=== PATIENT | male | born 1985 | race Two or more races ===

== ENCOUNTER 2023-10-19 04:00 | Inpatient (IN) | payer BC, OTHER ==
[~2023-10-19] VITALS: Ht 167.6 cm; Wt 127.5 kg
[2023-10-19] MEDS ORDERED: dilTIAZem 25 MG/5 ML VIAL IV ONE ×2 (04:30→05:15)
[2023-10-19 04:34] LABS: Basophils # (auto) 0 10 ^3/uL (0-0.2); Basophils % (auto) 0.5 % (0.0-2.0); Eosinophils # (auto) 0.3 10 ^3/uL (0-0.8); Eosinophils % (auto) 3.3 % (0.0-7.0); Hematocrit 49.7 % (41.0-53.0); Hemoglobin 16.7 g/dL (13.5-17.5); Lymphocytes # (auto) 2.8 10 ^3/uL (0.4-5.4); Lymphocytes % (auto) 31.5 % (10.0-50.0); Mean Corpuscular Hemoglobin 31.9 pg (28.0-32.0); Mean Corpuscular Hgb Conc. 33.6 g/dL (32.0-36.0); Mean Corpuscular Volume 94.9 fL (80.0-100.0); Monocytes # (auto) 0.7 10 ^3/uL (0-1.3); Monocytes % (auto) 7.6 % (0.0-12.0); Neutrophils # (auto) 5.1 10 ^3/uL (1.6-8.6); Neutrophils % (auto) 57.1 % (37.0-80.0); Nucleated Red Blood Cells % 0.1 %; Red Blood Cells 5.24 10^6/uL (4.5-5.90); Red Cell Distribution Width 14.4 % (11.8-14.3); White Blood Cell 8.9 10^3/uL (4.4-10.8)
[2023-10-19] MEDS ORDERED: ENOXAPARIN SOD 60 MG/0.6 ML SYRINGE SC ONE (04:45)
[2023-10-19] MEDS ORDERED: ASPirin 81 mg TAB PO ONE (04:45)
[2023-10-19] MEDS ORDERED: SODIUM CHLORIDE 0.9% 1,000 ML IV ONE (04:45)
[2023-10-19] MEDS ORDERED: dilTIAZem HCL 60 MG TAB PO ONE (04:45)
[2023-10-19 04:50] LABS: INR 1.01 (0.9-1.15); Partial Thromboplastin Time 32.2 SEC (24.5-34.5); Prothrombin Time 10.6 sec (9.3-11.8)
[2023-10-19 04:55] LABS: Alanine Aminotransferase 14 U/L (7-40); Albumin 4.5 g/dL (3.2-4.8); Alkaline Phosphatase 86 U/L (46-116); Anion Gap 7 (5-15); Aspartate Aminotransferase 14 U/L (13-40); BUN/Creatinine Ratio 6.7 (10.0-20.0); Bilirubin, Total 0.5 mg/dL (0.2-1.0); Blood Urea Nitrogen 6 mg/dL (9-23); Calcium 9.2 mg/dL (8.7-10.4); Carbon Dioxide 27 mmol/L (20-30); Chloride 106 mmol/L (98-107); Glucose 83 mg/dL (74-106); Magnesium 1.9 mg/dL (1.6-2.6); Potassium 3.9 mmol/L (3.5-5.1); Sodium 140 mmol/L (136-145)
[2023-10-19 04:56] LABS: Total Protein 6.9 g/dL (5.7-8.2)
[2023-10-19 05:25] VITALS: PULSE 158; RESP 12; RESP 9; O2SAT 95
[2023-10-19] MEDS ORDERED: AMIODARONE 450mg/250ml AE 250 ML IV SCH ×2 (06:30→12:30)
[2023-10-19 07:36] LABS: Amphetamine Screen, Urine Neg (NEGATIVE)
[2023-10-19 07:37] LABS: Benzodiazephine Screen, Urine Neg (NEGATIVE)
[2023-10-19 07:38] LABS: Barbiturate Scree,Urine Neg (NEGATIVE); Cocaine Screen, Urine Neg (NEGATIVE); Opiate Scree,Urine Neg (NEGATIVE); Phencyclidine Screen, Urine Neg (NEGATIVE)
[2023-10-19 07:41] LABS: Urine Bacteria NONE SEEN /hpf (None Seen); Urine Blood Negative /uL (Negative); Urine Clarity Clear (Clear); Urine Color Colorless (Yellow); Urine Protein, UAD Negative (Negative); Urine Specific Gravity 1.004 (1.001-1.035); Urine Urobilinogen Normal (Negative); Urine WBC 1 /hpf (0 - 3)
[2023-10-19 07:45] VITALS: PULSE 80; RESP 12; O2SAT 96
[2023-10-19 07:51] LABS: Cannabinoid Screen, Urine Pos (NEGATIVE)
[2023-10-19] MEDS ORDERED: ONDANSETRON HCL 4 MG/2 ML VIAL IV PRN (09:30)
[2023-10-19] MEDS ORDERED: DOCUSATE SOD 100 MG CAP PO PRN (09:30)
[2023-10-19] MEDS ORDERED: SODIUM CHLORIDE 0.9% 1,000 ML IV SCH (09:30)
[2023-10-19] MEDS ORDERED: MORPHINE SULFATE INJ 2 MG/ml SYRG IV PRN (09:30)
[2023-10-19] MEDS ORDERED: METOPROLOL SUCCINATE XL 50 MG TAB PO ONE (14:15)
[2023-10-19 20:00] VITALS: PULSE 67; RESP 15; O2SAT 95
[2023-10-19] MEDS: FLECAINIDE ACETATE 50 MG TAB PO SCH (23:08)
[2023-10-19] MEDS ORDERED: traZODone HCL 50 MG TAB PO SCH (23:30)
[2023-10-20 06:26] LABS: Basophils # (auto) 0 10 ^3/uL (0-0.2); Basophils % (auto) 0.3 % (0.0-2.0); Eosinophils # (auto) 0.1 10 ^3/uL (0-0.8); Eosinophils % (auto) 2.1 % (0.0-7.0); Hematocrit 48.5 % (41.0-53.0); Lymphocytes # (auto) 1.7 10 ^3/uL (0.4-5.4); Lymphocytes % (auto) 24.2 % (10.0-50.0); Mean Corpuscular Hemoglobin 31.1 pg (28.0-32.0); Mean Corpuscular Volume 94.2 fL (80.0-100.0); Monocytes # (auto) 0.4 10 ^3/uL (0-1.3); Monocytes % (auto) 6.2 % (0.0-12.0); Neutrophils # (auto) 4.6 10 ^3/uL (1.6-8.6); Neutrophils % (auto) 67.2 % (37.0-80.0); Nucleated Red Blood Cells % 0.2 %; Red Blood Cells 5.15 10^6/uL (4.5-5.90); Red Cell Distribution Width 13.9 % (11.8-14.3); White Blood Cell 6.9 10^3/uL (4.4-10.8)
[2023-10-20 06:34] VITALS: BP_SYST 135; BP_SYST 139; BP_DIAS 89; PULSE 55; PULSE 56; RESP 20; TEMP 97.4; O2SAT 99
[2023-10-20 06:49] LABS: Alanine Aminotransferase 15 U/L (7-40); Albumin 4.1 g/dL (3.2-4.8); Alkaline Phosphatase 76 U/L (46-116); Anion Gap 6 (5-15); Aspartate Aminotransferase 17 U/L (13-40); BUN/Creatinine Ratio 8.5 (10.0-20.0); Blood Urea Nitrogen 7 mg/dL (9-23); Calcium 8.9 mg/dL (8.7-10.4); Carbon Dioxide 27 mmol/L (20-30); Chloride 106 mmol/L (98-107); Glucose 98 mg/dL (74-106); Potassium 4.2 mmol/L (3.5-5.1); Sodium 139 mmol/L (136-145)
[2023-10-20 06:50] LABS: Bilirubin, Total 1.7 mg/dL (0.2-1.0)
[2023-10-20 06:51] LABS: Total Protein 6.5 g/dL (5.7-8.2)
[2023-10-20 07:51] VITALS: PULSE 47
[2023-10-20 08:38] VITALS: BP 149/86; PULSE 65; RESP 16; TEMP 97.8; O2SAT 98
[2023-10-20] MEDS ORDERED: METOPROLOL SUCCINATE XL 50 MG TAB PO SCH (10:00)
[2023-10-20] MEDS: FLECAINIDE ACETATE 50 MG TAB PO SCH (10:48)
[2023-10-20 12:55] VITALS: BP 153/82; PULSE 55; RESP 16; TEMP 97.8; O2SAT 94
[2023-10-20] MEDS ORDERED: FLE50T PO (14:24)
[2023-10-20] MEDS ORDERED: MELATONIN 5 MG TAB PO ONE (22:00)
== END 2023-10-20 15:38 | disposition home or self-care (01) | DRG 309 ==
LOC: EDBD 04:00 → ER 04:00 → TELE 09:26 → TELE-CENTR 10-20 05:58
PROVIDERS: ADMIT Nurse Practitioner Family; ATTEND Nurse Practitioner Family
DX: I48.20 Chronic atrial fibrillation, unspecified (principal); Z68.42 Body mass index [BMI] 45.0-49.9, adult; F12.10 Cannabis abuse, uncomplicated; I48.0 Paroxysmal atrial fibrillation; F10.129 Alcohol abuse with intoxication, unspecified; G47.00 Insomnia, unspecified; E66.01 Morbid (severe) obesity due to excess calories; I10 Essential (primary) hypertension; G47.33 Obstructive sleep apnea (adult) (pediatric); Z98.84 Bariatric surgery status
CPT/HCPCS: 36415; 71045; 80053; 80307; 80320; 81001; 83735; 83880; 84100; 84443; 84484; 85025; 85610; 85730; 93005; 93306; 96361; 96365; 96372; 96375; 96376; 99291; G0378

== ENCOUNTER → 2023-12-14 | Outpatient (CLI) | payer BC ==
[~2023-12-14] MED LIST: FLE50T PO
[2023-12-14 08:31] LABS: Basophils # (auto) 0 10 ^3/uL (0-0.2); Basophils % (auto) 0.7 % (0.0-2.0); Eosinophils # (auto) 0.2 10 ^3/uL (0-0.8); Eosinophils % (auto) 3.3 % (0.0-7.0); Hematocrit 47.5 % (41.0-53.0); Hemoglobin 16.1 g/dL (13.5-17.5); Lymphocytes # (auto) 1.9 10 ^3/uL (0.4-5.4); Lymphocytes % (auto) 31.5 % (10.0-50.0); Mean Corpuscular Hemoglobin 31.8 pg (28.0-32.0); Mean Corpuscular Volume 93.6 fL (80.0-100.0); Monocytes # (auto) 0.4 10 ^3/uL (0-1.3); Monocytes % (auto) 6.5 % (0.0-12.0); Neutrophils # (auto) 3.4 10 ^3/uL (1.6-8.6); Red Blood Cells 5.07 10^6/uL (4.5-5.90); Red Cell Distribution Width 14.2 % (11.8-14.3); White Blood Cell 5.9 10^3/uL (4.4-10.8)
[2023-12-14 09:22] LABS: Creatinine, Urine 181.04 mg/dL (30.0-125.0)
[2023-12-14 09:27] LABS: Alanine Aminotransferase 41 U/L (7-40); Albumin 4.5 g/dL (3.2-4.8); Alkaline Phosphatase 75 U/L (46-116); Anion Gap 4 (5-15); Aspartate Aminotransferase 90 U/L (13-40); BUN/Creatinine Ratio 8.8 (10.0-20.0); Blood Urea Nitrogen 7 mg/dL (9-23); Calcium 9.4 mg/dL (8.5-10.1); Carbon Dioxide 29 mmol/L (20-30); Chloride 105 mmol/L (98-107); Glucose 87 mg/dL (74-106); LDL Cholesterol 96 mg/dL (< 100); Potassium 4.7 mmol/L (3.5-5.1); Sodium 138 mmol/L (136-145); Triglycerides 95 mg/dL (< 150)
[2023-12-14 09:28] LABS: Cholesterol 149 mg/dL (< 200); HDL Cholesterol 45 mg/dL (40-59); Total Protein 6.6 g/dL (5.7-8.2)
== END | disposition home or self-care (01) ==
LOC: LAB 08:03
PROVIDERS: ATTEND Internal Medicine
DX: I10 Essential (primary) hypertension (principal); E55.9 Vitamin D deficiency, unspecified; R73.03 Prediabetes
CPT/HCPCS: 36415; 80053; 80061; 82043; 82306; 82570; 83036; 84443; 85025

== ENCOUNTER 2025-04-27 21:18 | Emergency (ER) | payer SELFPAY ==
[~2025-04-27] VITALS: Ht 170.2 cm; Wt 127.3 kg
--- NOTE | 2025-04-27 21:40 | ED.PDOC ---
History of Present Illness HPI Comments 39 y/o morbidly obese M presents with c/c palpitations and anxiety. Patient endorses on atraumatic, unprovoked, and sudden onset of symptoms an hour prior to arrival, while at rest. Significant history for AFib on Metoprolol, HTN, gastric bypass in 2016, and marijuana use. He states on having history of palp itations in the past, intermittently, but has not had an episode for over 2 years until today. No recent life stressors, strenuous activities, lifestyle changes, or pertinent history endorsed. Denies any chest pain, shortness of breath, nausea, vomiting, diarrhea, or further associated symptoms. Chief Complaint: Palpitations Time Seen by MD: 21:30 Reviewed Notes: Nurses Notes, Medications, Allergies Allergies: Coded Allergies: NO KNOWN ALLERGIES (Unverified , 10/19/23) Home Meds Active Scripts Flecainide Acetate (TAMBOCOR TABLET) 50 Mg Tb, 50 MG PO Q12HR for 30 Days, #60 TAB Prov:VICKEY CUNNINGHAM MD 10/20/23 Information Source: Patient Mode of Arrival: Ambulatory Severity: Moderate Timing: Hours Duration: Since onset Prehospital treatment: None Past Medical History PAST MEDICAL HISTORY: AFIB (On Metoprolol ), HTN Surgical History (Other): Gastric bypass - 2016 Family History Family History: Unknown Social History Smoker: Non-Smoker Alcohol: Sober Drugs: Marijuana Lives In: Home All Other Systems: Reviewed and Negative (Comprehensive systems review obtained and negative except for what is stated in the HPI.) Physical Exam General Appearance: No Apparent Distress, Obese (morbidly obesity ) HEENT: Normal ENT Inspection, Pharynx Normal, TMs Normal Neck: Full Range of Motion, Non-Tender, Normal, Normal Inspection Respiratory: Chest Non-Tender, Lungs Clear, No Accessory Muscle Use, No Respiratory Distress, Normal Breath Sounds Cardiovascular: Irregular (irregular irregular rhythm), No Edema, No JVD, No Murmur, No Gallop, Normal Peripheral Pulses Breast Exam: Deferred Gastrointestinal: No Organomegaly, Non Tender, No Pulsatile Mass, Normal Bowel Sounds, Soft Genitalia: Deferred Pelvic: Deferred Rectal: Deferred Extremities: No calf tenderness, Normal capillary refill, Normal inspection, Normal range of motion, Non-tender, No pedal edema Musculoskeletal : Apperance: Normal Neurologic: Alert, ledger clerk II-XII nml as Tested, No Motor Deficits, Normal Mood, No Sensory Deficits, Other (anxious affect ) Cerebellar Function: Normal Reflexes: Normal Skin: Dry, Normal Color, Warm Lymphatic: No Adenopathy Was a procedure done? Was a procedure done?: No EKG EKG : Pulse Rate (adult): 128 [place]: Normal Cardiac Rhythm: ST Block: None Hypertrophy: None ST: Normal Differential Dx Considerations may include: AFib, arrhythmia, dehydration, electrolyte imbalance, tachycardia, [place], among others X-Ray, Labs, Meds, VS Vital Signs Date Time Temp Pulse Resp B/P (MAP) Pulse Ox O2 Delivery O2 Flow Rate FiO2 04/28/25 01:50 98.6 67 17 133/67 (89) 97 98.6 04/28/25 00:30 74 04/28/25 00:00 138 8 122/75 (91) 96 04/28/25 00:00 143 04/27/25 23:31 99 Room Air* 0 21 04/27/25 23:20 174 106/76 04/27/25 23:01 155 141/79 04/27/25 22:36 122 11 141/79 (99) 95 04/27/25 22:20 165 04/27/25 21:40 128 04/27/25 21:23 128 04/27/25 21:20 98.8 72 18 139/94 (109) 95 98.8 Lab Test 04/28/25 00:39 04/27/25 21:35 Range/Units Troponin I High Sensitivity 3 L < 3 L </=54 ng/L White Blood Count 11.5 H 4.4-10.8 10^3/uL Red Blood Count 4.94 4.5-5.90 10^6/uL Hemoglobin 15.7 13.5-17.5 g/dL Hematocrit 44.7 41.0-53.0 % Mean Corpuscular Volume 90.6 80.0-100.0 fL Mean Corpuscular Hemoglobin 31.7 28.0-32.0 pg Mean Corpuscular Hemoglobin Concent 35.0 32.0-36.0 g/dL Red Cell Distribution Width 13.6 11.8-14.3 % Platelet Count 181 140-450 10^3/uL Mean Platelet Volume 8.4 6.9-10.8 fL Neutrophils (%) (Auto) 67.6 37.0-80.0 % Lymphocytes (%) (Auto) 24.8 10.0-50.0 % Monocytes (%) (Auto) 6.0 0.0-12.0 % Eosinophils (%) (Auto) 1.3 0.0-7.0 % Basophils (%) (Auto) 0.3 0.0-2.0 % Neutrophils # (Auto) 7.8 1.6-8.6 10 ^3/uL Lymphocytes # (Auto) 2.8 0.4-5.4 10 ^3/uL Monocytes # (Auto) 0.7 0-1.3 10 ^3/uL Eosinophils # (Auto) 0.1 0-0.8 10 ^3/uL Basophils # (Auto) 0 0-0.2 10 ^3/uL Nucleated Red Blood Cells 0.0 % Prothrombin Time 10.8 9.3-11.8 sec Prothrombin Time INR 1.02 0.9-1.15 Activated Partial Thromboplast Time 32.7 24.5-34.5 SEC Sodium Level 140 136-145 mmol/L Potassium Level 4.0 3.5-5.1 mmol/L Chloride Level 104 98-107 mmol/L Carbon Dioxide Level 26 20-31 mmol/L Anion Gap 10 5-15 Blood Urea Nitrogen 9 9-23 mg/dL Creatinine 0.95 0.700-1.30 mg/dL Glomerular Filtration Rate Calc 105 >90 mL/min BUN/Creatinine Ratio 9.5 L 10.0-20.0 Serum Glucose 93 74-106 mg/dL Calcium Level 10.2 8.7-10.4 mg/dL Magnesium Level 1.9 1.6-2.6 mg/dL Total Bilirubin 0.7 0.2-1.0 mg/dL Aspartate Amino Transferase (AST) 16 13-40 U/L Alanine Aminotransferase (ALT) < 9 7-40 U/L Alkaline Phosphatase 100 46-116 U/L Total Protein 7.0 5.7-8.2 g/dL Albumin 4.8 3.2-4.8 g/dL Current Medications Medications (Trade) Dose Ordered Sig/Miguel A Route Start Time Stop Time Status Last Admin Apixaban (Eliquis) 5 mg BID PO 04/27/25 22:00 04/28/25 02:35 DC 04/27/25 22:32 Metoprolol Tartrate (Lopressor) 5 mg Q5M IV 04/27/25 22:45 04/28/25 02:35 DC 04/27/25 23:20 Amiodarone HCl 100 ml @ 600 mls/hr ONCE ONCE IV 04/27/25 23:45 04/27/25 23:54 DC 04/27/25 23:44 Time of 1ST Reevaluation: 22:00 Reevaluation 1ST: Unchanged Time of 2ND Reevaluation: 00:20 Reevaluation 2ND: Improved (converted to NSR) Patient Education/Counseling: Diagnosis, Treatment, Need For Follow Up Family Education/Counseling: No Family Present SEPSIS Sepsis Screen Physician Orders Chest Portable (04/27/25 23:40) Rack Washer (04/28/25 ) Vital Signs Date Time Temp Pulse Resp B/P (MAP) Pulse Ox O2 Delivery O2 Flow Rate FiO2 04/28/25 01:50 98.6 67 17 133/67 (89) 97 98.6 04/28/25 00:30 74 04/28/25 00:00 138 8 122/75 (91) 96 04/28/25 00:00 143 04/27/25 23:31 99 Room Air* 0 21 04/27/25 23:20 174 106/76 04/27/25 23:01 155 141/79 04/27/25 22:36 122 11 141/79 (99) 95 04/27/25 22:20 165 04/27/25 21:40 128 04/27/25 21:23 128 04/27/25 21:20 98.8 72 18 139/94 (109) 95 98.8 Laboratory Tests Test 04/27/25 21:35 White Blood Count 11.5 10^3/uL (4.4-10.8) H Medications Medications Dose Ordered Sig/Miguel A Route Start Time Stop Time Status Last Admin Dose Admin Amiodarone HCl 100 ml @ 600 mls/hr ONCE ONCE IV 04/27/25 23:45 04/27/25 23:54 DC 04/27/25 23:44 Apixaban 5 mg BID PO 04/27/25 22:00 04/28/25 02:35 DC 04/27/25 22:32 Metoprolol Tartrate 5 mg Q5M IV 04/27/25 22:45 7/29/25 02:35 DC 04/27/25 23:20 Departure 1 Departure Time of Disposition: 00:10 Impression: Primary Impression: Paroxysmal atrial fibrillation Disposition: HOME / SELF CARE / HOMELESS Condition: Stable Discharged With: Self Critical Care Note Critical Care Time?: No Stability Stability form required: No Heart Score Heart Score: Heart Score Response (Comments) Value History N/A 0 EKG N/A 0 Age N/A 0 Risk Factors N/A 0 Troponin N/A 0 Total 0 I personally scribed for JALIL LOWRY MD ([email or web address]) on 04/27/25 at 21:40. Electronically submitted by Mitchel Zhang [email or web address]). JALIL LOWRY MD Apr 27, 2025 21:40
[2025-04-27 21:58] LABS: Hematocrit 44.7 % (41.0-53.0); Hemoglobin 15.7 g/dL (13.5-17.5); Mean Corpuscular Hemoglobin 31.7 pg (28.0-32.0); Mean Corpuscular Volume 90.6 fL (80.0-100.0); Nucleated Red Blood Cells % 0.0 %
[2025-04-27 22:17] LABS: Albumin 4.8 g/dL (3.2-4.8); Alkaline Phosphatase 100 U/L (46-116); Anion Gap 10 (5-15); BUN/Creatinine Ratio 9.5 (10.0-20.0); Bilirubin, Total 0.7 mg/dL (0.2-1.0); Calcium 10.2 mg/dL (8.7-10.4); Carbon Dioxide 26 mmol/L (20-31); Chloride 104 mmol/L (98-107); Glucose 93 mg/dL (74-106); Magnesium 1.9 mg/dL (1.6-2.6); Potassium 4.0 mmol/L (3.5-5.1); Sodium 140 mmol/L (136-145); Total Protein 7.0 g/dL (5.7-8.2)
[2025-04-27 22:18] LABS: Alanine Aminotransferase < 9 U/L (7-40); Blood Urea Nitrogen 9 mg/dL (9-23)
[2025-04-27] MEDS: APIXABAN 5 MG TAB PO SCH (22:32)
[2025-04-27 22:44] LABS: INR 1.02 (0.9-1.15); Partial Thromboplastin Time 32.7 SEC (24.5-34.5); Prothrombin Time 10.8 sec (9.3-11.8)
--- NOTE | 2025-04-27 22:46 | ECG ---
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
[2025-04-27] MEDS: METOPROLOL TARTRATE 1MG/1ML-5ML VIAL IV SCH (23:01)
[2025-04-27 23:31] VITALS: O2SAT 99
[2025-04-27] MEDS: AMIODARONE 360mg/200mL PREMIX 200 ML IV ONE (23:40)
[2025-04-27] MEDS: AMIODARONE BOLUS KIT 100 ML IV ONE (23:44)
--- NOTE | 2025-04-28 01:13 | DVH ---
CHEST RADIOGRAPH Indication: chest pain Technique: Single frontal view of the chest was obtained COMPARISON: XY CHEST PORTABLE on DOS: 10/19/23 FINDINGS: Lines and Tubes: None Lungs: Clear Pleura: No effusion. No pneumothorax. Cardiomediastinal contours: Unremarkable Bones: Unremarkable IMPRESSION: 1. No acute disease.
[2025-04-28 01:50] VITALS: BP 133/67; PULSE 67; RESP 17; TEMP 98.6; O2SAT 97
[2025-04-28] MEDS ORDERED: AMIODARONE 360mg/200mL PREMIX 200 ML IV SCH (06:00)
[2025-04-28] MEDS ORDERED: TRAZ-227 PO ×2 (15:49)
[2025-04-28] MEDS ORDERED: METO25TA93 PO ×2 (15:49)
[2025-04-30] MEDS ORDERED: APIX5TAB PO ×2 (16:29)
== END 2025-04-28 02:01 | disposition home or self-care (01) ==
LOC: EEVIPCON 21:18 → ER 21:18
DX: I48.0 Paroxysmal atrial fibrillation (principal); I10 Essential (primary) hypertension; Z79.899 Other long term (current) drug therapy
CPT/HCPCS: 36415; 71045; 80053; 83735; 84484; 85025; 85610; 85730; 93005; 96374; 99285; J0283

== ENCOUNTER 2025-04-28 10:04 | Inpatient (IN) | payer SELFPAY ==
[~2025-04-28] VITALS: Ht 167.6 cm; Wt 128.0 kg
--- NOTE | 2025-04-28 10:08 | ECG ---
[facility] Test Date: 2025-04-28 Test Time: 00:30:11 Pat Name: CASSIA MAYFIELD Department: ED Room: 0270T Gender: M Medicine Assistant: MARGY : 1985 Requested By: ASHLY BARCENAS Order Number: [id number] Reading MD: Nickolas Becerra Measurements Intervals [place] Rate: 74 P: 5 VT: 145 QRS: -1 QRSD: 97 T: 23 QT: 358 QTc: 398 Interpretive Statements Sinus rhythm Ventricular premature complex Low voltage, precordial leads Electronically Signed On 04-29-2025 17:52:13 PDT by Nickolas Becerra Please click the below link to view image of tracing.
--- NOTE | 2025-04-28 10:28 | ED.PDOC ---
HPI Comments 39 year-old morbidly obese male presents with to the ED with a chief complaint of palpitations. Patient endorses on atraumatic, unprovoked, and sudden onset of symptoms as of 0600 this morning, while at rest. Significant history for AFib on Metoprolol, HTN, gastric bypass in 2016, and marijuana use. He states on having history of palpitations in the past, intermittently, but has not had an episode for over 2 years until today. Patient came to the ED yesterday, 04/27/25, and was discharged with Paroxysmal atrial fibrillation. Patient came to the ED today upon continuing symptoms. Patient denies any recent life stressors, strenuous activities, lifestyle changes, or pertinent history endorsed. Denies any chest pain, shortness of breath, nausea, vomiting, diarrhea, or further associated symptoms. Chief Complaint: Palpitations Time Seen by MD: 10:26 Reviewed Notes: Nurses Notes, Medications, Allergies Allergies: Coded Allergies: NO KNOWN ALLERGIES (Unverified , 10/19/23) Home Meds Active Scripts Flecainide Acetate (TAMBOCOR TABLET) 50 Mg Tb, 50 MG PO Q12HR for 30 Days, #60 TAB Prov:VICKEY CUNNINGHAM MD 10/20/23 Information Source: Patient Mode of Arrival: Ambulatory Severity: Moderate Timing: Hours Duration: Since onset History of: Other (AFIB and HTN ) Associated Signs and Symptoms: Palpitations Past Medical History PAST MEDICAL HISTORY: AFIB, HTN Family History Family History: Unknown Social History Smoker: Non-Smoker Alcohol: Sober Drugs: Marijuana Lives In: Home Constitutional: denies: chills, diaphoresis, fatigue, fever, malaise, sweats, weakness, others EENTM: denies: blurred vision, double vision, ear bleeding, ear discharge, ear drainage, ear pain, ear ringing, eye pain, eye redness, hearing loss, mouth pain, mouth swelling, nasal discharge, nose bleeding, nose congestion, nose pain, photophobia, tearing, throat pain, throat swelling, voice changes, others Respiratory: denies: cough, hemoptysis, orthopnea, SOB at rest, shortness of breath, SOB with excertion, stridor, wheezing, others Cardiovascular: reports: palpitations; denies: chest pain, dizzy spells, diaphoresis, Dyspnea on exertion, edema, irregular heart beat, left arm pain, lightheadedness, PND, syncope, others Gastrointestinal: denies: abdomen distended, abdominal pain, blood streaked bowels, constipated, diarrhea, dysphagia, difficulty swallowing, hematemesis, melena, nausea, poor appetite, poor fluid intake, rectal bleeding, rectal pain, vomiting, others Genitourinary: denies: burning, dysuria, flank pain, frequency, hematuria, incontinence, penile discharge, penile sore, pain, testicle pain, testicle swelling, urgency, others Neurological: denies: dizziness, fainting, headache, left sided numbness, left sided weakness, numbness, paresthesia, pre-existing deficit, right sided numbness, right sided weakness, seizure, speech problems, tingling, tremors, weakness, others Musculoskeletal: denies: back pain, gout, joint pain, joint swelling, muscle pain, muscle stiffness, neck pain, others Integumetry: denies: bruises, change in color, change in hair/nails, dryness, laceration, lesions, lumps, rash, wounds, others Allergic/Immunocompromised: denies: Difficulty Healing, Frequent Infections, Hives, Itching, others Hematologic/Lymphatic: denies: anemia, blood clots, easy bleeding, easy bruising, swollen glands, others Endocrine: denies: excessive hunger, excessive sweating, excessive thirst, excessive urination, flushing, intolerance to cold, intolerance to heat, unexplained weight gain, unexplained weight loss, others Psychiatric: denies: anxiety, bipolar disorder, depression, hopeless, panic disorder, schizophrenia, sleepless, suicidal, others All Other Systems: Reviewed and Negative Physical Exam General Appearance: Moderate Distress, Obese HEENT: Normal ENT Inspection, Pharynx Normal, TMs Normal Neck: Full Range of Motion, Non-Tender, Normal, Normal Inspection Respiratory: Chest Non-Tender, Lungs Clear, No Accessory Muscle Use, No Respiratory Distress, Normal Breath Sounds Cardiovascular: Irregular, No Edema, No JVD, No Murmur, No Gallop, Tachycardia Breast Exam: Deferred Gastrointestinal: No Organomegaly, Non Tender, No Pulsatile Mass, Normal Bowel Sounds, Soft Genitalia: Deferred Pelvic: Deferred Rectal: Deferred Extremities: No calf tenderness, Normal capillary refill, No pedal edema Musculoskeletal : Apperance: Normal Neurologic: Alert, smoke control supervisor II-XII nml as Tested, Motor Weakness, Normal Affect, Normal Mood, No Sensory Deficits Cerebellar Function: Normal Reflexes: Normal Skin: Dry, Normal Color, Warm Lymphatic: No Adenopathy EKG EKG : Pulse Rate (adult): 153 Cardiac Rhythm: Afib Was a procedure done? Was a procedure done?: No CP Differential Dx Differential Diagnosis: A-fib, Hyperthyroidism, Sinus Tachycardia Differential Diagnosis: HTN Essential, HTN Accelerated X-Ray, Labs, Meds, VS Vital Signs Date Time Temp Pulse Resp B/P (MAP) Pulse Ox O2 Delivery O2 Flow Rate FiO2 04/28/25 12:26 137 13 99 Room Air* 0 21 04/28/25 12:26 137 13 131/80 (97) 99 04/28/25 11:35 66 16 98 Room Air 04/28/25 11:35 98.7 66 16 144/75 (98) 95 98.7 04/28/25 11:30 98.4 66 16 144/75 (98) 95 98.4 04/28/25 11:30 66 16 95 Room Air 04/28/25 11:16 143 04/28/25 10:28 153 04/28/25 10:17 98.2 65 17 138/99 97 98.2 04/28/25 10:10 123 04/28/25 10:10 153 Lab Test 04/28/25 11:20 04/28/25 10:18 Range/Units Troponin I High Sensitivity 3 L 4 </=54 ng/L White Blood Count 10.7 4.4-10.8 10^3/uL Red Blood Count 5.19 4.5-5.90 10^6/uL Hemoglobin 16.4 13.5-17.5 g/dL Hematocrit 47.4 41.0-53.0 % Mean Corpuscular Volume 91.2 80.0-100.0 fL Mean Corpuscular Hemoglobin 31.6 28.0-32.0 pg Mean Corpuscular Hemoglobin Concent 34.6 32.0-36.0 g/dL Red Cell Distribution Width 13.9 11.8-14.3 % Platelet Count 199 140-450 10^3/uL Mean Platelet Volume 9.2 6.9-10.8 fL Neutrophils (%) (Auto) 78.3 37.0-80.0 % Lymphocytes (%) (Auto) 15.1 10.0-50.0 % Monocytes (%) (Auto) 5.5 0.0-12.0 % Eosinophils (%) (Auto) 0.8 0.0-7.0 % Basophils (%) (Auto) 0.3 0.0-2.0 % Neutrophils # (Auto) 8.3 1.6-8.6 10 ^3/uL Lymphocytes # (Auto) 1.6 0.4-5.4 10 ^3/uL Monocytes # (Auto) 0.6 0-1.3 10 ^3/uL Eosinophils # (Auto) 0.1 0-0.8 10 ^3/uL Basophils # (Auto) 0 0-0.2 10 ^3/uL Nucleated Red Blood Cells 0.1 % Sodium Level 140 136-145 mmol/L Potassium Level 4.4 3.5-5.1 mmol/L Chloride Level 104 98-107 mmol/L Carbon Dioxide Level 28 20-31 mmol/L Anion Gap 8 5-15 Blood Urea Nitrogen 8 L 9-23 mg/dL Creatinine 0.92 0.700-1.30 mg/dL Glomerular Filtration Rate Calc 109 >90 mL/min BUN/Creatinine Ratio 8.7 L 10.0-20.0 Serum Glucose 124 H 74-106 mg/dL Hemoglobin A1c Pending Calcium Level 10.1 8.7-10.4 mg/dL Magnesium Level 1.8 1.6-2.6 mg/dL Total Bilirubin 1.1 H 0.2-1.0 mg/dL Aspartate Amino Transferase (AST) 16 13-40 U/L Alanine Aminotransferase (ALT) < 9 7-40 U/L Alkaline Phosphatase 104 46-116 U/L Total Protein 7.0 5.7-8.2 g/dL Albumin 4.8 3.2-4.8 g/dL Triglycerides Level 109 < 150 mg/dL Cholesterol Level 145 < 200 mg/dL LDL Cholesterol 90 < 100 mg/dL HDL Cholesterol 47 40-59 mg/dL Thyroid Stimulating Hormone (TSH) Pending Current Medications Medications (Trade) Dose Ordered Sig/Miguel A Route Start Time Stop Time Status Last Admin Diltiazem HCl (Cardizem Injection) 20 mg ONCE ONCE IV 04/28/25 11:30 04/28/25 11:31 DC 04/28/25 12:50 The patient was given diltiazem 20 mg IV push for the elevated heart rate and irregular heart rate The patient's CBC and chemistry panel are within normal limits The patient has had his heart rate convert down to the 66 and then go back as above 130 The patient is being admitted A cardiology consult will be obtained. The patient understands and agrees with the management. Images Reviewed?: Images reviewed and evaluated by me Time of 1ST Reevaluation: 10:53 Reevaluation 1ST: Unchanged Patient Education/Counseling: Diagnosis, Treatment, Prognosis Family Education/Counseling: No Family Present SEPSIS Sepsis Screen Date sepsis recognized/suspect: Apr 28, 2025 Time Sepsis recognized/suspect: 1007 Recent Procedure: No On Antibiotic Therapy: No Respiratory Rate >20: No Heart Rate >90: No Temp<36 C (96.8 F) or >38.3 C: No SBP <90 or MAP <65 mmHG: No New Acute Mental Status Change: No Is the patient on CPAP, BIPAP,: No Physician Orders Electrocardigram (04/28/25 13:06) Heplock Iv (04/28/25 10:17) Internet Marketer (04/28/25 10:17) Blood Pressure (04/28/25 10:17) Pulse Oximetry (04/28/25 10:17) Vital Signs Date Time Temp Pulse Resp B/P (MAP) Pulse Ox O2 Delivery O2 Flow Rate FiO2 04/28/25 12:26 137 13 99 Room Air* 0 21 04/28/25 12:26 137 13 131/80 (97) 99 04/28/25 11:35 66 16 98 Room Air 04/28/25 11:35 98.7 66 16 144/75 (98) 95 98.7 04/28/25 11:30 98.4 66 16 144/75 (98) 95 98.4 04/28/25 11:30 66 16 95 Room Air 04/28/25 11:16 143 04/28/25 10:28 153 04/28/25 10:17 98.2 65 17 138/99 97 98.2 04/28/25 10:10 123 04/28/25 10:10 153 Laboratory Tests Test 04/28/25 10:18 White Blood Count 10.7 10^3/uL (4.4-10.8) Medications Medications Dose Ordered Sig/Miguel A Route Start Time Stop Time Status Last Admin Dose Admin Diltiazem HCl 20 mg ONCE ONCE IV 04/28/25 11:30 04/28/25 11:31 DC 04/28/25 12:50 Departure 1 Departure Time of Disposition: 14:19 Impression: Primary Impression: Atrial fibrillation with RVR Disposition: ADMITTED INPATIENT Condition: Guarded Critical Care Note Critical Care Time?: Yes (55 min-critical care time only) Stability Stability form required: Yes Unstable for transfer: Telemetry monitoring (Telemetry monitoring required), ED Physician Assesment (Clinical assesment) Heart Score Heart Score: Heart Score Response (Comments) Value History Moderate Suspicious 1 EKG Normal 0 Age <45 0 Risk Factors 1 or 2 risk factors 1 Troponin Normal limit 0 Total 2 I personally scribed for DARLINE CLEMONS MD ([email or web address]) on 04/28/25 at 10:28. Electronically submitted by Alyssa You ([email or web address]). I personally scribed for DARLINE CLEMONS MD ([email or web address]) on 04/28/25 at 13:49. Electronically submitted by Alyssa You ([email or web address]). DARILNE CLEMONS MD Apr 28, 2025 10:28
[2025-04-28 11:03] LABS: Albumin 4.8 g/dL (3.2-4.8); Alkaline Phosphatase 104 U/L (46-116); Anion Gap 8 (5-15); BUN/Creatinine Ratio 8.7 (10.0-20.0); Bilirubin, Total 1.1 mg/dL (0.2-1.0); Calcium 10.1 mg/dL (8.7-10.4); Carbon Dioxide 28 mmol/L (20-31); Chloride 104 mmol/L (98-107); Magnesium 1.8 mg/dL (1.6-2.6); Potassium 4.4 mmol/L (3.5-5.1); Sodium 140 mmol/L (136-145); Total Protein 7.0 g/dL (5.7-8.2)
[2025-04-28 11:05] LABS: Alanine Aminotransferase < 9 U/L (7-40); Blood Urea Nitrogen 8 mg/dL (9-23); Glucose 124 mg/dL (74-106)
--- NOTE | 2025-04-28 11:18 | ECG ---
[facility] Test Date: 2025-04-28 Test Time: 11:16:27 Pat Name: CASSIA MAYFIELD Department: [facility] ED Patient ID: [id number] Room: 0270T Gender: M Help Desk Assistant: JUNG : 1985 Requested By: ASHLY BARCENAS Order Number: [id number] Reading MD: Nickolas Becerra Measurements Intervals [place] Rate: 143 P: 0 [place]: 0 QRS: -2 QRSD: 95 T: 44 QT: 307 QTc: 474 Interpretive Statements Atrial flutter/fibrillation Prolonged QT interval Electronically Signed On 04-29-2025 17:53:14 PDT by Nickolas Becerra Please click the below link to view image of tracing.
[2025-04-28] MEDS: METOPROLOL TARTRATE 1MG/1ML-5ML VIAL IV ONE (11:30)
[2025-04-28 12:26] VITALS: PULSE 137; RESP 13; O2SAT 99
[2025-04-28 12:40] LABS: Hematocrit 47.4 % (41.0-53.0); Hemoglobin 16.4 g/dL (13.5-17.5); Mean Corpuscular Hemoglobin 31.6 pg (28.0-32.0); Mean Corpuscular Volume 91.2 fL (80.0-100.0); Nucleated Red Blood Cells % 0.1 %
[2025-04-28] MEDS ORDERED: ONDANSETRON HCL 4 MG/2 ML VIAL IV PRN (12:45)
[2025-04-28] MEDS ORDERED: ACETAMINOPHEN 325 MG TAB PO PRN (12:45)
[2025-04-28] MEDS ORDERED: NITROGLYCERIN 0.4 MG SL TAB SL PRN (12:45)
[2025-04-28] MEDS ORDERED: HYDROcodone-ACET 5/325MG TAB PO PRN (12:45)
[2025-04-28] MEDS ORDERED: DOCUSATE SOD 100 MG CAP PO PRN (12:45)
[2025-04-28] MEDS ORDERED: MORPHINE SULFATE INJ 2 MG/ml SYRG IV PRN (12:45)
--- NOTE | 2025-04-28 12:49 | DVHHP2 ---
History of Present Illness Reason for Visit: Palpitations History of Present Illness Pauline Bhatt is a 39-year-old male with past medical history of obesity, hypertension, and atrial fibrillation, who came to the hospital for palpitations. Patient has a history of atrial fibrillation, however he states he has not been in atrial fibrillation for over 2 years. He has been controlled at home on just Metoprolol. Patient did take PO amiodarone for about 6 months, but it messed with his thyroid so he was taken off the medication. He was seen here yesterday due to palpitations, and was found to be in atrial fibrillation. He was given 2 doses of IV metoprolol, without any improvement, so he was started on IV amiodarone. He converted last night, remained in SR for several hours, and was discharged home. This morning he woke up with palpitations again. He tried taking a double dose of his metoprolol hoping to convert back to SR, but he was unsuccessful so he came back to the ER. Patient also has an open wound to his right lower abdomen. He states he gets boils at times from his abdomen rubbing on his belt. Cardiovascular: AFIB, HTN Past Surgical History: Cholecystectomy, Other (gastric bypass) Smoke: No ALCOHOL: none Drugs: Marijuana Lives: Alone Domestic Violence: Neg Review of Systems Constitutional: No: Fever, Chills, Sweats, Weakness, Malaise, Other Eyes: No: Pain, Vision change, Conjunctivae inflammation, Eyelid inflammation, Other, Redness ENT: No: Ear pain, Ear discharge, Nose pain, Nose discharge, Nose congestion, Mouth pain, Mouth swelling, Throat pain, Throat swelling, Other Respiratory: No: Cough, Dry, Shortness of breath, SOB with excertion, Wheezing, Hemoptysis, Pleuritic Pain, Sputum, Wheezing, Other Cardiovascular: Palpitations; No: Chest Pain, Orthopnea, Paroxysmal Noc. Dyspnea, Edema, Lt Headedness, Other Gastrointestinal: No: Nausea, Vomiting, Abdominal Pain, Diarrhea, Constipation, Melena, Hematochezia, Other Genitourinary: No Dysuria, No Frequency, No Incontinence, No Hematuria, No Retention, No Other Musculoskeletal: No: other, neck pain, shoulder pain, arm pain, back pain, hand pain, leg pain, foot pain Skin: Lesions (right lower abdomen); No: Rash, Jaundice, Bruising, Other Neurological: No: Weakness, Numbness, Incoordination, Change in speech, Confusion, Seizures, Other Allergies: Coded Allergies: NO KNOWN ALLERGIES (Unverified , 10/19/23) Exam Vital Signs Vital Signs Date Time Temp Pulse Resp B/P (MAP) Pulse Ox O2 Delivery O2 Flow Rate FiO2 04/28/25 11:35 66 16 98 Room Air 04/28/25 11:35 98.7 144/75 (98) 98.7 General Appearance: Alert, Oriented X3, Cooperative, mild distress HEENT: Atraumatic, PERRLA Respiratory: Clear to auscultation, Normal air movement Cardiovascular: Other (Atrial fibrillation) Abdominal: Normal bowel sounds, Soft, No tenderness, No hepatospenomegaly Extremities: No clubbing, No cyanosis, No edema, Normal pulses Skin: No rashes, No significant lesion (open wound to right lower abdomen, surronding tissue is red, swollen, and warm. Yellow drainage noted) Neuro: Normal gait, Normal speech, Strength at 5/5 X4 ext, Normal tone Psych/Mental Status: Mental status NL, Mood NL Labs/Xrays Labs Test 04/28/25 11:20 04/28/25 10:18 Range/Units Troponin I High Sensitivity 3 L </=54 ng/L Sodium Level 140 136-145 mmol/L Potassium Level 4.4 3.5-5.1 mmol/L Chloride Level 104 98-107 mmol/L Carbon Dioxide Level 28 20-31 mmol/L Anion Gap 8 5-15 Blood Urea Nitrogen 8 L 9-23 mg/dL Creatinine 0.92 0.700-1.30 mg/dL Glomerular Filtration Rate Calc 109 >90 mL/min BUN/Creatinine Ratio 8.7 L 10.0-20.0 Serum Glucose 124 H 74-106 mg/dL Calcium Level 10.1 8.7-10.4 mg/dL Magnesium Level 1.8 1.6-2.6 mg/dL Total Bilirubin 1.1 H 0.2-1.0 mg/dL Aspartate Amino Transferase (AST) 16 13-40 U/L Alanine Aminotransferase (ALT) < 9 7-40 U/L Alkaline Phosphatase 104 46-116 U/L Total Protein 7.0 5.7-8.2 g/dL Albumin 4.8 3.2-4.8 g/dL SEPSIS Sepsis Screen Date sepsis recognized/suspect: Apr 28, 2025 Time Sepsis recognized/suspect: 1007 Recent Procedure: No On Antibiotic Therapy: No Respiratory Rate >20: No Heart Rate >90: No Temp<36 C (96.8 F) or >38.3 C: No SBP <90 or MAP <65 mmHG: No New Acute Mental Status Change: No Is the patient on CPAP, BIPAP,: No Physician Orders Troponin-I Hs (04/28/25 13:06) Electrocardigram (04/28/25 13:06) Heplock Iv (04/28/25 10:17) Pool Hand (04/28/25 10:17) Blood Pressure (04/28/25 10:17) Pulse Oximetry (04/28/25 10:17) Complete Blood Count (04/28/25 11:32) Admit (04/28/25 12:35) Code Status (04/28/25 12:35) 2 Gm Sodium Diet (04/28/25 Lunch) Hydrocodone-Acet 5/325mg Tab ([place] (04/28/25 12:45) Ondansetron Hcl (Zofran) (04/28/25 12:45) Docusate Sodium Capsule (Colace Capsule) (04/28/25 12:45) Complete Blood Count (04/29/25 04:00) Comprehensive Metabolic Panel (04/29/25 04:00) Echo 2d Mode Cardiac Dop (04/28/25 12:35) Condition: Serious (04/28/25 12:35) Acetaminophen Tablet (Tylenol Tablet) (04/28/25 12:45) Nitroglycerin Sublingual (Ntrostat Subli (04/28/25 12:45) Morphine Sulfate Injection (04/28/25 12:45) Stat Ekg For Chest Pain (04/28/25 12:35) Notify Md Of Changes From Base (04/28/25 12:35) Yard Cleaner For 24 Hours (04/28/25 12:35) Emergency Dysrhythmia Protocol (04/28/25 12:35) Rhythm Strips Once Every Shift (04/28/25 12:35) Oxygen By Nasal Cannula (04/28/25 12:35) * Cardiology Consult (04/28/25 12:35) Vital Signs Date Time Temp Pulse Resp B/P (MAP) Pulse Ox O2 Delivery O2 Flow Rate FiO2 04/28/25 11:35 66 16 98 Room Air 04/28/25 11:35 98.7 66 16 144/75 (98) 95 98.7 04/28/25 11:30 98.4 66 16 144/75 (98) 95 98.4 04/28/25 11:30 66 16 95 Room Air 04/28/25 11:16 143 04/28/25 10:28 153 04/28/25 10:17 98.2 65 17 138/99 97 98.2 04/28/25 10:10 123 04/28/25 10:10 153 Laboratory Tests Test 04/28/25 10:18 White Blood Count Pending Assessment/Plan Assessment/Plan Assessment: Paroxysmal atrial fibrillation, Hypertension, Obesity, Open wound, Plan: Admit to Tele, Cardiology consult, ECHO, Lipid panel, TSH, and A1c, IV amiodarone started, IV hydration, IV antibiotics, Wound culture, Wound care consult, Consider surgical consult if wound worsens and requires surgical debridement, Home medications reconciled, Plan discussed with: Patient My Orders Orders - SHANICE SOTO SENIOR CONSTRUCTION ESTIMATOR Procedure Category Date Status Time Complete Blood Count LAB 04/28/25 In Process 11:32 Admit ADMIT 04/28/25 Verified 12:35 Code Status CODE 04/28/25 Verified 12:35 2 Gm Sodium Diet DIET 04/28/25 Verified Lunch Hydrocodone-Acet PHA 04/28/25 Verified 5/325mg Tab ([place] 12:45 Ondansetron Hcl PHA 04/28/25 Verified (Zofran) 12:45 Docusate Sodium PHA 04/28/25 Verified Capsule (Colace 12:45 Complete Blood Count LAB 04/29/25 Verified 04:00 Comprehensive LAB 04/29/25 Verified Metabolic Panel 04:00 Echo 2d Mode Cardiac US 04/28/25 Verified DOP 12:35 Condition: Serious CAREY 04/28/25 Verified 12:35 Acetaminophen Tablet PHA 04/28/25 Verified (Tylenol Tablet) 12:45 Nitroglycerin PHA 04/28/25 Verified Sublingual (Ntrostat 12:45 Morphine Sulfate PHA 04/28/25 Verified Injection 12:45 Stat Ekg For Chest CAREY 04/28/25 Verified Pain 12:35 Notify Of Changes CAREY 04/28/25 Verified From Base 12:35 Yard Cleaner For [facility] 04/28/25 Verified 24 Hours 12:35 Emergency Dysrhythmia [facility] 04/28/25 Verified Protocol 12:35 Rhythm Strips Once [facility] 04/28/25 Verified Every Shift 12:35 Oxygen By Nasal RT 04/28/25 Verified Cannula 12:35 * Cardiology Consult CONS 04/28/25 Verified 12:35 Date of Service: Apr 28, 2025 Billing Provider: SHANICE SOTO Common Visit Codes: [id number] INP/OBS CARE (MOD) SHANICE SOTO Apr 28, 2025 12:48
[2025-04-28] MEDS: dilTIAZem 25 MG/5 ML VIAL IV ONE (12:50)
[2025-04-28 14:13] LABS: Triglycerides 109 mg/dL (< 150)
[2025-04-28 14:15] LABS: Cholesterol 145 mg/dL (< 200); HDL Cholesterol 47 mg/dL (40-59)
[2025-04-28] MEDS ORDERED: VANCOMYCIN PER PHARMACY 0 MG IV SCH (15:00)
[2025-04-28] MEDS ORDERED: VANCOMYCIN 1.25GM/250ML 250 ML IV ONE (15:00)
[2025-04-28] MEDS: CLINDAMYCIN 600MG IV 50 ML IV ONE (15:19)
[2025-04-28] MEDS: SODIUM CHLORIDE 0.9% 1,000 ML IV ONE (15:19)
[2025-04-28] MEDS ORDERED: METO25TA93 PO (15:49)
[2025-04-28] MEDS ORDERED: TRAZ-227 PO (15:49)
[2025-04-28] MEDS: AMIODARONE 360mg/200mL PREMIX 200 ML IV ONE (16:05)
[2025-04-28] MEDS: AMIODARONE BOLUS KIT 100 ML IV ONE (16:05)
[2025-04-28] MEDS: VANCOMYCIN 1GM/200ML PM 250 ML IV SCH (16:17)
--- NOTE | 2025-04-28 17:04 | DVHSR ---
APPROVED REPORT EXAM: Two-dimensional and M-mode echocardiogram with Doppler and color Doppler. Blood Pressure: 131/80 mmHg INDICATION paroxysmal atrial fibrillation RISK FACTORS Obesity: Height: 5'6, Weight: 270 DIMENSIONS LVDd4.1 (3.8-5.7cm)LA (2D)5.2 (1.9-4.0cm)Aortic Root3.4 (2.0-3.7cm) LVDs2.7 (2.5-4.0cm)LA (MM) (1.9-4.0cm)Aortic Cusp Exc2.0 (1.5-2.0cm) EF (%) 60.0 (55-70%)Rt. Atrium3.6 (1.9-4.0cm)Asc. Aorta cm IVSd1.1 (0.7-1.1cm)RV (D)3.8 (1.8-2.4cm) PWd0.8 (0.7-1.1cm) Mitral Valve MitralMitral Stenosis E wave1.11m/sMV Mean GR.mmHg A wave1.00m/sMV Peak GR.72mmHg E/A ratio1.12D MVAcm2 DECEL [id number] 1/2 Timems Aortic Valve Aortic ValveAortic Stenosis V11.02m/Heydi Mean GR.4mmHg V21.35m/Heydi Peak GR.7mmHg LVOT Diameter2.3 (1.8-2.4cm)Doppler AVA3.14cm2 Pulmonic Valve V20.79m/s Tricuspid Valve TR Velocity2.50m/s [id number] Other Information Technically limited study due to body habitus. Conclusion lvef 50% left atrium enlarged afib noted during study mild mitral regurg
[2025-04-28 18:29] VITALS: PULSE 75
[2025-04-28 19:28] VITALS: BP 122/76; PULSE 65; RESP 15; TEMP 98.1; O2SAT 95
[2025-04-28 20:00] VITALS: PULSE 66; PULSE 77; RESP 18; O2SAT 98
[2025-04-28 21:00] VITALS: BP 120/78; PULSE 66; RESP 14; TEMP 98; O2SAT 95
[2025-04-28] MEDS: AMIODARONE 360mg/200mL PREMIX 200 ML IV SCH (21:15)
[2025-04-28] MEDS: CLINDAMYCIN 600MG IV 50 ML IV SCH (21:34)
[2025-04-28] MEDS: METOPROLOL SUCCINATE XL 50 MG TAB PO SCH (21:39)
[2025-04-28] MEDS ORDERED: METOPROLOL SUCCINATE PO SCH (22:00)
[2025-04-29] VITALS (8 sets, daily range): BP systolic 109–149; BP diastolic 72–95; PULSE 60–70; RESP 14–20; TEMP 97.2–98; O2SAT 94–98
[2025-04-29 05:18] LABS: Hematocrit 43.6 % (41.0-53.0); Hemoglobin 15.2 g/dL (13.5-17.5); Mean Corpuscular Hemoglobin 31.6 pg (28.0-32.0); Mean Corpuscular Volume 90.9 fL (80.0-100.0); Nucleated Red Blood Cells % 0.0 %
[2025-04-29 05:40] LABS: Albumin 4.4 g/dL (3.2-4.8); Alkaline Phosphatase 94 U/L (46-116); Anion Gap 7 (5-15); BUN/Creatinine Ratio 11.0 (10.0-20.0); Calcium 9.2 mg/dL (8.7-10.4); Carbon Dioxide 27 mmol/L (20-31); Chloride 106 mmol/L (98-107); Glucose 92 mg/dL (74-106); Potassium 4.0 mmol/L (3.5-5.1); Sodium 140 mmol/L (136-145); Total Protein 6.4 g/dL (5.7-8.2)
[2025-04-29 05:41] LABS: Alanine Aminotransferase < 9 U/L (7-40); Bilirubin, Total 1.1 mg/dL (0.2-1.0); Blood Urea Nitrogen 9 mg/dL (9-23)
[2025-04-29] MEDS: VANCOMYCIN 1GM/200ML PM 200 ML IV SCH (10:54)
--- NOTE | 2025-04-29 17:33 | DVHPN2 ---
Subjective I am assuming the care of the patient from today onwards. Reviewed: Care Plan Changes from previous H/P or p: No Changes Eyes: No Pain, No Vision change, No Conjunctivae inflammation, No Eyelid inflammation, No Other, No Redness ENT: No Ear pain, No Ear discharge, No Nose pain, No Nose discharge, No Nose congestion, No Mouth pain, No Mouth swelling, No Throat pain, No Throat swelling, No Other Cardiovascular: No Chest Pain; Palpitations; No Orthopnea, No Paroxysmal Noc. Dyspnea, No Edema, No Lt Headedness, No Other Respiratory: No Cough, No Dry, No Shortness of breath, No SOB with excertion, No Wheezing, No Hemoptysis, No Pleuritic Pain, No Sputum, No Other Gastrointestinal: No Nausea, No Vomiting, No Abdominal Pain, No Diarrhea, No Constipation, No Melena, No Hematochezia, No Other Genitourinary: No Dysuria, No Frequency, No Incontinence, No Hematuria, No Retention, No Other Musculoskeletal: No other, No neck pain, No shoulder pain, No arm pain, No back pain, No hand pain, No leg pain, No foot pain Skin: No Rash; Lesions (right lower abdomen); No Jaundice, No Bruising, No Other Objective Vitals Vital Signs Date Time Temp Pulse Resp B/P (MAP) Pulse Ox O2 Delivery O2 Flow Rate FiO2 04/29/25 16:20 97.2 61 20 116/88 (97) 97 97.2 04/29/25 08:00 Room Air* 0 21 Intake/Output Intake and Output 04/29/25 07:00 Intake Total 950 ml Balance 950 ml Intake Oral 300 ml IV Total 650 ml Exam HEENT pupils are reactive Neck is supple CV is S1-S2 regular rate and rhythm Respiratory diminished breath sounds at bases GI positive bowel sound Extremity no edema SALES AND 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 CLERK no motor deficit Medications Current Medications Medications Dose Ordered Sig/Miguel A Route Start Time Stop Time Status Last Admin Dose Admin Acetaminophen/ Hydrocodone Bitart 1 tab Q4HP PRN PO 04/28/25 12:45 Ondansetron HCl 4 mg Q4HP PRN IV 04/28/25 12:45 Docusate Sodium 100 mg BIDPRN PRN PO 04/28/25 12:45 Acetaminophen 650 mg Q6HP PRN PO 04/28/25 12:45 Nitroglycerin 0.4 mg Q5MINP PRN SL 04/28/25 12:45 Morphine Sulfate 2 mg Q30M PRN IV 04/28/25 12:45 Clindamycin Phosphate 50 ml @ 50 mls/hr Q8HR IV 04/28/25 22:00 04/29/25 13:57 50 MLS/HR Vancomycin HCl 0 ml @ 0 mls/hr UD IV 04/28/25 15:00 Trazodone HCl 50 mg HS PO 04/28/25 22:00 04/28/25 21:34 50 MG Patient Own Medication 2 tab BID PO 04/28/25 22:00 UNV Metoprolol Succinate 50 mg BID PO 04/28/25 22:00 04/29/25 09:22 50 MG Vancomycin HCl 200 ml @ 200 mls/hr Q6H IV 04/29/25 11:00 04/29/25 17:23 200 MLS/HR Laboratory Results Laboratory Tests 04/29/25 04:20 Chemistry Test 04/29/25 04:20 Albumin 4.4 g/dL (3.2-4.8) Calcium Level 9.2 mg/dL (8.7-10.4) Total Protein 6.4 g/dL (5.7-8.2) LFT Test 04/29/25 04:20 Alanine Aminotransferase (ALT) < 9 U/L (7-40) Alkaline Phosphatase 94 U/L (46-116) Aspartate Amino Transferase (AST) 13 U/L (13-40) Total Bilirubin 1.1 mg/dL (0.2-1.0) H Microbiology Microbiology Date/Time Source Procedure Growth Status 04/28/25 13:53 Abdomen Gram Stain - Final Resulted 04/28/25 13:53 Abdomen Wound Culture - Preliminary Resulted Assessment/Plan Assessment/Plan 39-year-old male with a known history of hypertension, paroxysmal AFib presented to the hospital with chest pain palpitation found to have 1. Paroxysmal AFib currently rate controlled 2. Hypertension 3. Morbid obesity classIII -continue beta vineet , 2D echo cardiology consultation. Plan discussed with: Patient My Orders Orders - ADALI ELKINS MD Procedure Category Date Status Time * Cardiology Consult CONS 04/29/25 Transmitted 12:28 * Dietary Consult CONS 04/29/25 Transmitted 16:28 Cleanse Wound With CAREY 04/29/25 In Process Wound Clean 12:00 Date of Service: Apr 29, 2025 Billing Provider: ADALI ELKINS MD Common Visit Codes: [id number] INP/OBS CARE(MOD) ADALI ELKINS MD Apr 29, 2025 17:33
[2025-04-30 00:42] VITALS: BP 121/79; PULSE 55; RESP 20; TEMP 98; O2SAT 97
[2025-04-30 04:40] VITALS: BP 134/88; PULSE 55; RESP 20; TEMP 97; O2SAT 96
[2025-04-30 08:00] VITALS: PULSE 61; PULSE 65; RESP 18
[2025-04-30 08:30] VITALS: BP 154/86; PULSE 60; RESP 19; TEMP 97.4; O2SAT 98
[2025-04-30] MEDS ORDERED: VANCOMYCIN 1GM/200ML PM 200 ML IV SCH (09:00)
[2025-04-30 13:00] VITALS: BP 135/77; PULSE 63; RESP 17; TEMP 98; O2SAT 97
[2025-04-30] MEDS: VANCOMYCIN 1GM/200ML PM 200 ML IV SCH (14:11)
--- NOTE | 2025-04-30 14:47 | DVHINCON2 ---
Date Seen: Apr 30, 2025 Referring Physician MD Dustin Reason for Consultation Afib History of Present Illness This is a 39-year-old male patient who presents to the emergency room with chief complaint of palpitations. The patient reports intermittent palpitations for two days prior to emergency room arrival. Initial twelve electrocardiogram done in the emergency room reveals atrial fibrillation with rapid ventricular response. The patient was given diltiazem 20 mg IV once in the emergency room, which did not help the patient's heart rate. The patient was then given an amiodarone bolus, followed by amiodarone drip per protocol. At the time of assessment, patient now is in normal sinus rhythm and denies any palpitations, chest pain, shortness of breath, or cardiac symptoms. Significant past medical history includes paroxysmal atrial fibrillation, gastric bypass, insomnia, and history of alcohol abuse. Patient reports that he does not follow a wood heel flap trimmer outpatient due to his lack of insurance. He also reports that he stopped taking amiodarone many years ago due to adverse effects to his thyroid. Past Medical History Past medical history reviewed. No other significant than mentioned above. Past Surgical History Gastric bypass in 2016 Family History: Cardiovascular disease G8 MOTHER G8 FATHER Diabetes mellitus G8 MOTHER G8 FATHER Family History Family history reviewed. Social History Patient admits to occasional marijuana use Denies any tobacco use Reports a previous history of alcohol abuse for eight years, quit 3 years ago Allergies: Coded Allergies: NO KNOWN ALLERGIES (Unverified , 10/19/23) Home Meds Reported Medications Metoprolol Succinate (Metoprolol Succinate Er) 25 Mg Tab, 2 TAB PO BID 04/28/25 Trazodone Hcl (Trazodone Hcl) 50 Mg Tab, 1 TAB PO HS 04/28/25 Discontinued Scripts Flecainide Acetate (TAMBOCOR TABLET) 50 Mg Tb, 50 MG PO Q12HR for 30 Days, #60 TAB Prov:VICKEY CUNNINGHAM MD 10/20/23 Home Meds Home medications reviewed. Current Medications Current Medications Medications (Trade) Dose Ordered Sig/Miguel A Route PRN Reason Start Time Stop Time Status Last Admin Vancomycin HCl 200 ml @ 200 mls/hr Q6H IV 04/30/25 09:00 04/30/25 13:16 DC Vancomycin HCl 200 ml @ 200 mls/hr Q6H IV 04/30/25 14:00 04/30/25 14:11 Review of Systems Constitutional: No symptom reported Ears, Nose, & Throat: No symptom reported Eyes: No symptom reported Neurological: No symptoms reported Pulmonary/Respiratory: No symptoms reported Cardiovascular: Palpitations Gastrointestinal: No symptom reported Genitourinary: No symptom reported Musculoskeletal: No symptom reported Skin: No symptom reported Psychiatric: No symptom reported Endocrine: No symptom reported Hematologic/Lymphatic: No symptom reported Vital Signs Vital Signs Date Time Temp Pulse Resp B/P (MAP) Pulse Ox O2 Delivery O2 Flow Rate FiO2 04/30/25 13:00 98.0 63 17 135/77 (96) 97 98.0 04/30/25 08:00 Room Air* 0 21 Physical Exam General Appearance: Cooperative. Morbidly obese Pulmonary/Respiratory: Clear, bilateral breaths sounds. Cardiovascular/Chest: Regular rate and rhythm. Peripheral Pulses: 2+ Radial (R). 2+ Radial (L). 2+ Pedal (R). 2+ Pedal (L) Abdominal Exam: Normal bowel sounds. Ankle Exam: Negative ankle edema Lower extremities: Negative lower extremity edema Neuro/Mental Status: A/OX4, coherent. Thoughts/Psych: Normal thought pattern. Appropriate mood and affect. Good judgme nt and insight. Appearance: No acute distress. Skin Exam: Normal inspection. Normal color. Warm and dry. Labs/Diagnostic Data Labs Test 04/30/25 11:14 04/30/25 05:51 04/29/25 04:20 04/28/25 11:20 Range/Units Vancomycin Level Trough 10.8 H 5-10 ug/mL Creatinine 0.90 0.700-1.30 mg/dL Glomerular Filtration Rate Calc 112 >90 mL/min White Blood Count 7.0 # 4.4-10.8 10^3/uL Red Blood Count 4.80 4.5-5.90 10^6/uL Hemoglobin 15.2 13.5-17.5 g/dL Hematocrit 43.6 41.0-53.0 % Mean Corpuscular Volume 90.9 80.0-100.0 fL Mean Corpuscular Hemoglobin 31.6 28.0-32.0 pg Mean Corpuscular Hemoglobin Concent 34.7 32.0-36.0 g/dL Red Cell Distribution Width 13.7 11.8-14.3 % Platelet Count 159 140-450 10^3/uL Mean Platelet Volume 8.5 6.9-10.8 fL Neutrophils (%) (Auto) 67.5 37.0-80.0 % Lymphocytes (%) (Auto) 23.9 10.0-50.0 % Monocytes (%) (Auto) 6.0 0.0-12.0 % Eosinophils (%) (Auto) 2.3 0.0-7.0 % Basophils (%) (Auto) 0.3 0.0-2.0 % Neutrophils # (Auto) 4.7 1.6-8.6 10 ^3/uL Lymphocytes # (Auto) 1.7 0.4-5.4 10 ^3/uL Monocytes # (Auto) 0.4 0-1.3 10 ^3/uL Eosinophils # (Auto) 0.2 0-0.8 10 ^3/uL Basophils # (Auto) 0 0-0.2 10 ^3/uL Nucleated Red Blood Cells 0.0 % Sodium Level 140 136-145 mmol/L Potassium Level 4.0 3.5-5.1 mmol/L Chloride Level 106 98-107 mmol/L Carbon Dioxide Level 27 20-31 mmol/L Anion Gap 7 5-15 Blood Urea Nitrogen 9 9-23 mg/dL BUN/Creatinine Ratio 11.0 10.0-20.0 Serum Glucose 92 74-106 mg/dL Calcium Level 9.2 8.7-10.4 mg/dL Total Bilirubin 1.1 H 0.2-1.0 mg/dL Aspartate Amino Transferase (AST) 13 13-40 U/L Alanine Aminotransferase (ALT) < 9 7-40 U/L Alkaline Phosphatase 94 46-116 U/L Total Protein 6.4 5.7-8.2 g/dL Albumin 4.4 3.2-4.8 g/dL Random Vancomycin Level 6.7 5-10 ug/mL Troponin I High Sensitivity 3 L </=54 ng/L Test 04/28/25 10:18 Range/Units Hemoglobin A1c 5.5 <5.7 % A1C Magnesium Level 1.8 1.6-2.6 mg/dL Triglycerides Level 109 < 150 mg/dL Cholesterol Level 145 < 200 mg/dL LDL Cholesterol 90 < 100 mg/dL HDL Cholesterol 47 40-59 mg/dL Thyroid Stimulating Hormone (TSH) 2.23 0.55-4.78 uIU/mL Microbiology Date/Time Source Procedure Growth Status 04/28/25 13:53 Abdomen Gram Stain - Final Resulted 04/28/25 13:53 Abdomen Wound Culture - Preliminary Resulted Assessment Paroxysmal atrial fibrillation, stage 3A Mild mitral valve regurgitation Marijuana use Obesity Plan/Recommendation We will continue with the following plan/recommendations (Dr. Becerra): * Transthoracic echocardiogram reveals an EF of 50% with left atrial enlargement * [id number] VASc score: 0 points * Continue with beta-vineet for rate control * Consider NOAC therapy for 30 days * Patient refuses antiarrhythmic agent * Monitor and replete electrolytes as needed, keep potassium greater than four and magnesium greater than two * Continuous telemetry monitoring The patient has now converted back into a normal sinus rhythm at time of assessment. We will recommend to continue with beta-vineet for rate control. Given that the patient was chemically cardioverted, this places him at high risk for development of thromboembolic event, the patient should take NOAC therapy for at least 30 days. Antiarrhythmic medication was discussed with the patient, patient adamantly refuses and states he was previously on amiodarone which damaged his thyroid. He refuses any antiarrhythmic agents at this time. Patient has been educated that he will need to follow up with Cardiology in the outpatient setting for further management. At this time, there is no further inpatient cardiac workup indicated at this time. Thank you for allowing us to care for this patient. Please call with any questions or concerns. Critical care time spent: 44 minutes This medical document was created using an electronic medical record system with voice recognition software and computerized dictation system. Although this document has been carefully reviewed, there might still be some phonetic and typographical errors. Occasional wrong-word or ``sound-alike substitutions may have occurred due to the inherent limitations of voice recognition software. These areas are purely typographical due to imperfections of the software programs and do not reflect any compromise in the patient's medical care. Please read the chart carefully and recognize, using context, where these substitutions have occurred. Plan discussed with: Patient NYHA Physical activity limitations: NA Date of Service: Apr 30, 2025 Billing Provider: GUILLERMO LAMB Cardiology Common Codes: [id number] INP/OBS CARE (High) Cardiology Consultation Codes: [id number] CONSULT <45MIN GUILLERMO LAMB Apr 30, 2025 14:47
[2025-04-30] MEDS ORDERED: APIX5TAB PO (16:29)
[2025-04-30 16:54] VITALS: BP 139/86; PULSE 63; RESP 18; TEMP 97.9; O2SAT 94
--- NOTE | 2025-04-30 17:53 | DVHDS2 ---
Discharge Summary Date of Admission Apr 28, 2025 at 12:35 Date of Discharge: Apr 30, 2025 Labs/Diagnostic Data: Laboratory Results Test 04/30/25 11:14 04/30/25 05:51 04/29/25 04:20 04/28/25 11:20 Vancomycin Level Trough 10.8 ug/mL (5-10) Creatinine 0.90 mg/dL (0.700-1.30) Glomerular Filtration Rate Calc 112 mL/min (>90) White Blood Count 7.0 10^3/uL (4.4-10.8) Red Blood Count 4.80 10^6/uL (4.5-5.90) Hemoglobin 15.2 g/dL (13.5-17.5) Hematocrit 43.6 % (41.0-53.0) Mean Corpuscular Volume 90.9 fL (80.0-100.0) Mean Corpuscular Hemoglobin 31.6 pg (28.0-32.0) Mean Corpuscular Hemoglobin Concent 34.7 g/dL (32.0-36.0) Red Cell Distribution Width 13.7 % (11.8-14.3) Platelet Count 159 10^3/uL (140-450) Mean Platelet Volume 8.5 fL (6.9-10.8) Neutrophils (%) (Auto) 67.5 % (37.0-80.0) Lymphocytes (%) (Auto) 23.9 % (10.0-50.0) Monocytes (%) (Auto) 6.0 % (0.0-12.0) Eosinophils (%) (Auto) 2.3 % (0.0-7.0) Basophils (%) (Auto) 0.3 % (0.0-2.0) Neutrophils # (Auto) 4.7 10 ^3/uL (1.6-8.6) Lymphocytes # (Auto) 1.7 10 ^3/uL (0.4-5.4) Monocytes # (Auto) 0.4 10 ^3/uL (0-1.3) Eosinophils # (Auto) 0.2 10 ^3/uL (0-0.8) Basophils # (Auto) 0 10 ^3/uL (0-0.2) Nucleated Red Blood Cells 0.0 % Sodium Level 140 mmol/L (136-145) Potassium Level 4.0 mmol/L (3.5-5.1) Chloride Level 106 mmol/L (98-107) Carbon Dioxide Level 27 mmol/L (20-31) Anion Gap 7 (5-15) Blood Urea Nitrogen 9 mg/dL (9-23) BUN/Creatinine Ratio 11.0 (10.0-20.0) Serum Glucose 92 mg/dL (74-106) Calcium Level 9.2 mg/dL (8.7-10.4) Total Bilirubin 1.1 mg/dL (0.2-1.0) Aspartate Amino Transferase (AST) 13 U/L (13-40) Alanine Aminotransferase (ALT) < 9 U/L (7-40) Alkaline Phosphatase 94 U/L (46-116) Total Protein 6.4 g/dL (5.7-8.2) Albumin 4.4 g/dL (3.2-4.8) Random Vancomycin Level 6.7 ug/mL (5-10) Troponin I High Sensitivity 3 ng/L (</=54) Test 04/28/25 10:18 Hemoglobin A1c 5.5 % A1C (<5.7) Magnesium Level 1.8 mg/dL (1.6-2.6) Triglycerides Level 109 mg/dL (< 150) Cholesterol Level 145 mg/dL (< 200) LDL Cholesterol 90 mg/dL (< 100) HDL Cholesterol 47 mg/dL (40-59) Thyroid Stimulating Hormone (TSH) 2.23 uIU/mL (0.55-4.78) Other Laboratory Tests 04/30/25 05:51 04/29/25 04:20 Brief Hx & Hospital Course: 39-year-old male with a known history of hypertension, paroxysmal AFib presented to the hospital with chest pain palpitation found to have AFib with a RVR. Patient was started on beta-vineet. Patient was recommended to be on Eliquis which will be prescribed. Patient is being discharged under stable condition with close follow up as an outpatient with the PCP and Cardiology. Diet weight reduction and exercise counseling was given. Condition at Discharge: Stable Final Diagnosis/Problems List 39-year-old male with a known history of hypertension, paroxysmal AFib presented to the hospital with chest pain palpitation found to have 1. Paroxysmal AFib currently rate controlled 2. Hypertension 3. Morbid obesity classIII Discharge Disposition: Home SNF Discharge Will this Physician continue t: No Discharge Instruct/Medications Diet: Cardiac 2g Na,low cholest Activity: No Restrictions, As Tolerated Follow Up/Referral: Follow up with the PCP in 1 week Follow up with Dr. Becerra in 1-2 weeks Medications: Has reconciled and prescribed. New Medications: Apixaban Base (Eliquis) 5 Mg Tab 5 MG PO BID for 30 Days, #60 TAB Continued Medications: Metoprolol Succinate (Metoprolol Succinate Er) 25 Mg Tab 2 TAB PO BID Trazodone Hcl (Trazodone Hcl) 50 Mg Tab 1 TAB PO HS Scheduled Amiodarone HCl (Amiodarone HCl), 200 MG PO BID Apixaban Base (Eliquis), 5 MG PO BID Cephalexin (Keflex Capsule), 500 MG PO Q6HR Metoprolol Succinate (Metoprolol Succinate Er), 2 TAB PO BID, (Reported) Trazodone Hcl (Trazodone Hcl), 1 TAB PO HS, (Reported) Discharge Statement: "Patient was advised to return to the ER or call 911 if any headaches, dizziness, shortness of breath, chest pain, abdominal pain, bleeding, fevers, or worsening of medical condition. Patient was counseled about treatment plan, medications, possible side effects, patientverbalized understanding. All questions were answered to the best of my ability. This discharge took greater then 30 minutes in planning, reviewing documentation, counseling the patient, and discussing with other team members." ASSESSMENT ASSESSMENT Assessment 39-year-old male with a known history of hypertension, paroxysmal AFib presented to the hospital with chest pain palpitation found to have 1. Paroxysmal AFib currently rate controlled 2. Hypertension 3. Morbid obesity classIII Date of Service: Apr 30, 2025 Billing Provider: ADALI ELKINS MD Common Visit Codes: 55129-HOK/OBS DISCH DAY >30min ADALI ELKINS MD Apr 30, 2025 17:53
[2025-05-02] MEDS ORDERED: CEPH250C PO (17:24)
[2025-05-02] MEDS ORDERED: AMIO200T13 PO (17:24)
--- NOTE | 2025-05-04 07:56 | ECG ---
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
== END 2025-04-30 18:40 | disposition home or self-care (01) | DRG 309 ==
LOC: ER 10:04 → EEVIPCON 12:35 → OVERFLOW 12:35 → TELE-WESTW 18:37
PROVIDERS: ADMIT Internal Medicine; ATTEND Internal Medicine
DX: I48.0 Paroxysmal atrial fibrillation (principal); Z68.42 Body mass index [BMI] 45.0-49.9, adult; I11.9 Hypertensive heart disease without heart failure; I34.0 Nonrheumatic mitral (valve) insufficiency; E66.813 Obesity, class 3; G47.00 Insomnia, unspecified; F12.90 Cannabis use, unspecified, uncomplicated; Z98.84 Bariatric surgery status; Z83.3 Family history of diabetes mellitus; Z82.49 Family history of ischemic heart disease and other diseases of the circulatory system
CPT/HCPCS: 36415; 80053; 80061; 80202; 82565; 83036; 83735; 84443; 84484; 85025; 87077; 87186; 87205; 93005; 93306; 96365; 96366; 96367; 99291; G0378; J3490

== ENCOUNTER 2025-05-01 01:38 | Inpatient (IN) | payer SELFPAY ==
[~2025-05-01] VITALS: Ht 167.6 cm; Wt 133.1 kg
[2025-05-01] VITALS (13 sets, daily range): BP systolic 124–167; BP diastolic 81–98; PULSE 57–86; RESP 11–19; TEMP 97.8–98.3; O2SAT 92–97
[~2025-05-01 01:38] MED LIST changes: +APIX5TAB PO; +METO25TA93 PO; +TRAZ-227 PO
--- NOTE | 2025-05-01 01:56 | ED.PDOC ---
HPI Comments 39 year old obese male with a Hx of HTN, A-FIB, and Marijuana use presents to the ED for the c/c of Left Sided Chest Palpitations. Pt states that his symptoms started a few hours ago before ED arrival, and notes they he was here at [facility] this past Sunday for the same c/c. Pt is currently noted to be in A-FIB RVR in the 140's. Pt denies any ABD pain, SORIA, Blurry vision, Weakness, N/V/D, or any other associated symptoms or modifiers at this time. Chief Complaint: Palpitations Time Seen by MD: 01:51 Reviewed Notes: Nurses Notes, Medications, Allergies Allergies: Coded Allergies: NO KNOWN ALLERGIES (Unverified , 10/19/23) Home Meds Active Scripts Apixaban Base (ELIQUIS) 5 Mg Tab, 5 MG PO BID for 30 Days, #60 TAB Prov:ADALI ELKINS MD 04/30/25 Reported Medications Metoprolol Succinate (Metoprolol Succinate Er) 25 Mg Tab, 2 TAB PO BID 04/28/25 Trazodone Hcl (Trazodone Hcl) 50 Mg Tab, 1 TAB PO HS 04/28/25 Discontinued Scripts Flecainide Acetate (TAMBOCOR TABLET) 50 Mg Tb, 50 MG PO Q12HR for 30 Days, #60 TAB Prov:VICKEY CUNNINGHAM MD 10/20/23 Information Source: Patient Mode of Arrival: Ambulatory Severity: Moderate Timing: Hours Duration: Since onset, Hours Prehospital treatment: None Location: Chest (L) Radiation: No Radiation Quality: Pressure Onset: At Rest Cardiac Risk Factors: HTN PE Risk Factors: None History of: Similar pain in past Modifying Factors: Exertion Associated Signs and Symptoms: Palpitations Past Medical History PAST MEDICAL HISTORY: AFIB, HTN Family History Family History: Unknown Social History Smoker: Non-Smoker Alcohol: Sober Drugs: Marijuana Lives In: Home Constitutional: denies: chills, diaphoresis, fatigue, fever, malaise, sweats, weakness, others EENTM: denies: blurred vision, double vision, ear bleeding, ear discharge, ear drainage, ear pain, ear ringing, eye pain, eye redness, hearing loss, mouth pain, mouth swelling, nasal discharge, nose bleeding, nose congestion, nose pain, photophobia, tearing, throat pain, throat swelling, voice changes, others Respiratory: denies: cough, hemoptysis, orthopnea, SOB at rest, shortness of breath, SOB with excertion, stridor, wheezing, others Cardiovascular: reports: palpitations; denies: chest pain, dizzy spells, diaphoresis, Dyspnea on exertion, edema, irregular heart beat, left arm pain, lightheadedness, PND, syncope, others Gastrointestinal: denies: abdomen distended, abdominal pain, blood streaked bowels, constipated, diarrhea, dysphagia, difficulty swallowing, hematemesis, melena, nausea, poor appetite, poor fluid intake, rectal bleeding, rectal pain, vomiting, others Genitourinary: denies: burning, dysuria, flank pain, frequency, hematuria, incontinence, penile discharge, penile sore, pain, testicle pain, testicle swelling, urgency, others Neurological: denies: dizziness, fainting, headache, left sided numbness, left sided weakness, numbness, paresthesia, pre-existing deficit, right sided numbness, right sided weakness, seizure, speech problems, tingling, tremors, weakness, others Musculoskeletal: denies: back pain, gout, joint pain, joint swelling, muscle pa in, muscle stiffness, neck pain, others Integumetry: denies: bruises, change in color, change in hair/nails, dryness, laceration, lesions, lumps, rash, wounds, others Allergic/Immunocompromised: denies: Difficulty Healing, Frequent Infections, Hives, Itching, others Hematologic/Lymphatic: denies: anemia, blood clots, easy bleeding, easy bruising, swollen glands, others Endocrine: denies: excessive hunger, excessive sweating, excessive thirst, excessive urination, flushing, intolerance to cold, intolerance to heat, unexplained weight gain, unexplained weight loss, others Psychiatric: denies: anxiety, bipolar disorder, depression, hopeless, panic disorder, schizophrenia, sleepless, suicidal, others All Other Systems: Reviewed and Negative Physical Exam General Appearance: Moderate Distress, Normal, Obese HEENT: Normal ENT Inspection, Pharynx Normal, TMs Normal Neck: Full Range of Motion, Non-Tender, Normal, Normal Inspection Respiratory: Chest Non-Tender, Lungs Clear, No Accessory Muscle Use, No Respiratory Distress, Normal Breath Sounds Cardiovascular: No Edema, No JVD, No Murmur, Normal Peripheral Pulses, Tachycardia, Other (currently in A-FIB) Breast Exam: Deferred Gastrointestinal: No Organomegaly, Non Tender, No Pulsatile Mass, Normal Bowel Sounds, Soft Genitalia: Deferred Pelvic: Deferred Rectal: Deferred Extremities: No calf tenderness, Normal capillary refill, Normal inspection, Normal range of motion, Non-tender, No pedal edema Musculoskeletal : Apperance: Normal Neurologic: Alert, cannery 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 Was a procedure done?: No CP Differential Dx Differential Diagnosis: A-fib, A-Flutter, Angina, Electrolyte Disorder, Heart Failure, Pulmonary Embolus, PVC's, Sinus Tachycardia Differential Diagnosis: N/A Differential Diagnosis: Angina, Chest Wall Pain, Cholelithiasis, Esophageal reflux/spasm, Gastritis, Pericarditis, Pneumothorax, Pulmonary Embolus X-Ray, Labs, Meds, VS Vital Signs Date Time Temp Pulse Resp B/P (MAP) Pulse Ox O2 Delivery O2 Flow Rate FiO2 05/01/25 02:45 144 05/01/25 01:44 149 05/01/25 01:40 97.5 148 20 134/77 100 97.5 Lab Test 05/01/25 02:55 05/01/25 01:53 Range/Units Troponin I High Sensitivity Pending 5 </=54 ng/L White Blood Count 10.0 # 4.4-10.8 10^3/uL Red Blood Count 5.09 4.5-5.90 10^6/uL Hemoglobin 16.0 13.5-17.5 g/dL Hematocrit 46.1 41.0-53.0 % Mean Corpuscular Volume 90.5 80.0-100.0 fL Mean Corpuscular Hemoglobin 31.4 28.0-32.0 pg Mean Corpuscular Hemoglobin Concent 34.7 32.0-36.0 g/dL Red Cell Distribution Width 13.7 11.8-14.3 % Platelet Count 223 140-450 10^3/uL Mean Platelet Volume 8.3 6.9-10.8 fL Neutrophils (%) (Auto) 76.8 37.0-80.0 % Lymphocytes (%) (Auto) 16.2 10.0-50.0 % Monocytes (%) (Auto) 5.2 0.0-12.0 % Eosinophils (%) (Auto) 1.5 0.0-7.0 % Basophils (%) (Auto) 0.3 0.0-2.0 % Neutrophils # (Auto) 7.7 1.6-8.6 10 ^3/uL Lymphocytes # (Auto) 1.6 0.4-5.4 10 ^3/uL Monocytes # (Auto) 0.5 0-1.3 10 ^3/uL Eosinophils # (Auto) 0.1 0-0.8 10 ^3/uL Basophils # (Auto) 0 0-0.2 10 ^3/uL Nucleated Red Blood Cells 0.0 % Prothrombin Time 10.9 9.3-11.8 sec Prothrombin Time INR 1.03 0.9-1.15 Activated Partial Thromboplast Time 32.6 24.5-34.5 SEC Sodium Level 139 136-145 mmol/L Potassium Level 3.9 3.5-5.1 mmol/L Chloride Level 104 98-107 mmol/L Carbon Dioxide Level 25 20-31 mmol/L Anion Gap 10 5-15 Blood Urea Nitrogen 14 9-23 mg/dL Creatinine 1.11 0.700-1.30 mg/dL Glomerular Filtration Rate Calc 87 >90 mL/min BUN/Creatinine Ratio 12.6 10.0-20.0 Serum Glucose 100 74-106 mg/dL Calcium Level 9.3 8.7-10.4 mg/dL Total Bilirubin 0.7 0.2-1.0 mg/dL Aspartate Amino Transferase (AST) 17 13-40 U/L Alanine Aminotransferase (ALT) < 9 7-40 U/L Alkaline Phosphatase 101 46-116 U/L Total Protein 7.1 5.7-8.2 g/dL Albumin 4.8 3.2-4.8 g/dL Thyroid Stimulating Hormone (TSH) Pending Free Thyroxine (T4) Calculated 1.11 0.89-1.76 ng/dL Time of 1ST Reevaluation: 02:22 Reevaluation 1ST: Unchanged Patient Education/Counseling: Diagnosis, Treatment, Need For Follow Up Family Education/Counseling: No Family Present SEPSIS Sepsis Screen Physician Orders Electrocardigram (05/01/25 01:47) Troponin-I Hs (05/01/25 02:47) Troponin-I Hs (05/01/25 04:47) Thyroid Stimulating Hormone (05/01/25 01:51) Chest Portable (05/01/25 03:08) Aspirin Tablet (05/01/25 03:15) Vital Signs Date Time Temp Pulse Resp B/P (MAP) Pulse Ox O2 Delivery O2 Flow Rate FiO2 05/01/25 02:45 144 05/01/25 01:44 149 05/01/25 01:40 97.5 148 20 134/77 100 97.5 Laboratory Tests Test 05/01/25 01:53 White Blood Count 10.0 10^3/uL (4.4-10.8) # Departure 1 Departure Time of Disposition: 03:13 Impression: Primary Impression: Atrial fibrillation with RVR Additional Impression: Paroxysmal atrial fibrillation Disposition: ADMITTED INPATIENT Admit to: [facility] Condition: Guarded Discharged With: Self Comments Palpitations and Chest Tightness with Atrial Fibrillation Chief Complaint: Palpitations, chest tightness, and rapid heart rate History of Present Illness: 39-year-old male with a history of paroxysmal atrial fibrillation presents to the emergency department with palpitations, chest tightness, and rapid heart rate for the past 2-3 hours. The patient reports a similar episode that resulted in hospitalization at [facility] just a few days ago. He has multiple comorbidities including alcohol abuse, marijuana use, hypertension, and obesity. The patient's symptoms are consistent with his known history of paroxysmal atrial fibrillation with rapid ventricular response. Review of Systems: Cardiovascular: Positive for palpitations, chest tightness, and rapid heart rate. Constitutional: No fever, chills, or weight changes reported. Respiratory: No shortness of breath, cough, or wheezing reported. All other systems: Deferred or negative. 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 Medications administered in ED: - Metoprolol 5 mg IV - Aspirin (dose not specified) Allergies: No known allergies documented. Past Medical History: 1. Paroxysmal atrial fibrillation 2. Hypertension 3. Obesity 4. Alcohol abuse 5. Marijuana use 6. Recent hospitalization at [facility] for similar episode Past Surgical History: No past surgical history documented. Social History: Alcohol: History of alcohol abuse, current consumption not specified. Tobacco: Not documented. Drugs: Marijuana use reported. Occupation: Not documented. Living situation: Not documented. Physical Exam: General: Obese male. Cardiovascular: Irregular rhythm, tachycardic. Other systems: Not documented in central control room operator. Lab Results: CBC: Unremarkable Chemistry panel: Unremarkable Troponin: Normal at 5 (units not specified) Imaging and Other Relevant Results: Chest X-ray (from 2 days ago): No acute pathology Medical Decision Making: Summary Statement: 39-year-old male with history of paroxysmal atrial fibrillation presenting with palpitations, chest tightness, and rapid heart rate for 2-3 hours, found to be in atrial fibrillation with rapid ventricular response. Problem List: 1. Paroxysmal atrial fibrillation with rapid ventricular response, 2. Chest tightness/possible intermediate coronary syndrome, 3. Hypertension, 4. Obesity, 5. Alcohol abuse, 6. Marijuana use. Differential Diagnosis: 1. Paroxysmal atrial fibrillation with RVR, 2. Acute coronary syndrome, 3. Anxiety, 4. Substance-induced palpitations, 5. Thyroid disorder, 6. Electrolyte abnormalities. ED Course: Patient presented with palpitations and chest tightness. ECG showed atrial fibrillation with rapid ventricular response. Labs including CBC, chemistry panel, and troponin were unremarkable. Patient was treated with IV metoprolol 5 mg and aspirin for rate control and possible intermediate coronary syndrome. Decision was made to admit the patient for further management. Assessment and Plan: 1. Paroxysmal Atrial Fibrillation with Rapid Ventricular Response: - Administered metoprolol 5 mg IV for rate control - Will admit for continued monitoring and management - Consider anticoagulation based on CESAR?DS?-VASc score - Cardiology consultation for management recommendations 2. Intermediate Coronary Syndrome/Chest Tightness: - Administered aspirin - Initial troponin normal - Will continue serial cardiac enzymes during admission - Consider stress test if appropriate during hospitalization 3. Hypertension: - Continue home antihypertensive medications - Monitor blood pressure during hospitalization 4. Alcohol Abuse and Marijuana Use: - Consider addiction medicine consultation - Assess for withdrawal symptoms during hospitalization 5. Obesity: - Dietary consultation during hospitalization Disposition: Admit to telemetry unit for management of paroxysmal atrial fibrillation with rapid ventricular response and further evaluation of chest tightness. Additional Notes: Patient recently discharged from [facility] for similar episode Billing Information: ICD-10: I48.0 - Paroxysmal atrial fibrillation ICD-10: R07.89 - Other chest pain ICD-10: R00.2 - Palpitations ICD-10: F10.10 - Alcohol abuse, uncomplicated ICD-10: I10 - Essential (primary) hypertension ICD-10: E66.9 - Obesity, unspecified Critical Care Note Critical Care Time?: Yes (35 min-critical care time only) Critical care comment: Total critical care time: Approximately 36 minutes Due to a high probability of clinically significant, life threatening deterioration, the patient required my highest level of preparedness to intervene emergently and I personally spent this critical care time directly and personally managing the patient. This critical care time included obtaining a history; examining the patient; pulse oximetry; ordering and review of studies; arranging urgent treatment with development of a management plan; evaluation of patient's response to treatment; frequent reassessment; and, discussions with other providers. This critical care time was performed to assess and manage the high probability of imminent, life-threatening deterioration that could result in multi-organ failure. It was exclusive of separately billable procedures and treating other patients. Stability Stability form required: No Heart Score Heart Score: Heart Score Response (Comments) Value History Moderate Suspicious 1 EKG Repolarization Disturb 1 Age <45 0 Risk Factors 1 or 2 risk factors 1 Troponin Normal limit 0 Total 3 I personally scribed for JALIL LOWRY MD ([email or web address]) on 05/01/25 at 01:56. Electronically submitted by Vaibhav Klein ([email or web address]). JALIL LOWRY MD May 01, 2025 01:56
[2025-05-01 02:05] LABS: Hematocrit 46.1 % (41.0-53.0); Hemoglobin 16.0 g/dL (13.5-17.5); Mean Corpuscular Hemoglobin 31.4 pg (28.0-32.0); Mean Corpuscular Volume 90.5 fL (80.0-100.0); Nucleated Red Blood Cells % 0.0 %
[2025-05-01] MEDS: METOPROLOL TARTRATE 1MG/1ML-5ML VIAL IV SCH (02:05)
[2025-05-01 02:23] LABS: Albumin 4.8 g/dL (3.2-4.8); Alkaline Phosphatase 101 U/L (46-116); Anion Gap 10 (5-15); BUN/Creatinine Ratio 12.6 (10.0-20.0); Blood Urea Nitrogen 14 mg/dL (9-23); Calcium 9.3 mg/dL (8.7-10.4); Carbon Dioxide 25 mmol/L (20-31); Chloride 104 mmol/L (98-107); Glucose 100 mg/dL (74-106); Potassium 3.9 mmol/L (3.5-5.1); Sodium 139 mmol/L (136-145); Total Protein 7.1 g/dL (5.7-8.2)
[2025-05-01 02:24] LABS: Bilirubin, Total 0.7 mg/dL (0.2-1.0)
[2025-05-01 02:26] LABS: INR 1.03 (0.9-1.15); Partial Thromboplastin Time 32.6 SEC (24.5-34.5); Prothrombin Time 10.9 sec (9.3-11.8)
[2025-05-01 02:43] LABS: Alanine Aminotransferase < 9 U/L (7-40)
[2025-05-01] MEDS ORDERED: HYDROcodone-ACET 5/325MG TAB PO PRN (03:30)
[2025-05-01] MEDS ORDERED: DOCUSATE SOD 100 MG CAP PO PRN (03:30)
[2025-05-01] MEDS ORDERED: MORPHINE SULFATE INJ 2 MG/ml SYRG IV PRN (03:30)
[2025-05-01] MEDS ORDERED: NITROGLYCERIN 0.4 MG SL TAB SL PRN (03:30)
[2025-05-01] MEDS ORDERED: ONDANSETRON HCL 4 MG/2 ML VIAL IV PRN (03:30)
--- NOTE | 2025-05-01 03:32 | DVHHP2 ---
History of Present Illness Reason for Visit: Atrial fibrillation with RVR History of Present Illness The patient is a 39-year-old male morbidly obese with past medical history of AFib and hypertension who presented to [facility] ED with complaint of palpitations. Patient reports he has been here at [facility] this last Sunday, on Sunday with the same symptoms. Patient was seen and evaluated in the ED with palpitations, noted to be in AFib with RVR in the 140s, blood pressure 123/53, temperature 97.5 F, O2 saturation 99% on room air. Laboratory data shows WBC 10.0, platelets 223, sodium 139, potassium 3.9, BUN 14, creatinine 1.11, glucose 100, calcium 9.3, troponin 5. Chest x-ray show no acute disease. Patient was given metoprolol 5 mg IV x 1, please see medication orders section in the computer. On my assessment, patient denied chest pain, no headache, no dizziness, no diaphoresis, no shortness of breaths, no nausea, no vomiting, no fever, no chills. Patient was admitted for further evaluation and medical management. Past Medical History AFIB, HTN Past Surgical History Gastric bypass with gallbladder removal. Family History Reviewed, noncontributory to the management of this case. Past Social History The patient lives at home, denies smoking, alcohol or illicit drugs abuse. Review of Systems Constitutional: No: Fever, Chills, Sweats, Weakness, Malaise, Other Eyes: No: Pain, Vision change, Conjunctivae inflammation, Eyelid inflammation, Other, Redness ENT: No: Ear pain, Ear discharge, Nose pain, Nose discharge, Nose congestion, Mouth pain, Mouth swelling, Throat pain, Throat swelling, Other Respiratory: No: Cough, Dry, Shortness of breath, SOB with excertion, Wheezing, Hemoptysis, Pleuritic Pain, Sputum, Wheezing, Other Cardiovascular: Palpitations; No: Chest Pain, Orthopnea, Paroxysmal Noc. Dyspnea, Edema, Lt Headedness, Other Gastrointestinal: No: Nausea, Vomiting, Abdominal Pain, Diarrhea, Constipation, Melena, Hematochezia, Other Genitourinary: No Dysuria, No Frequency, No Incontinence, No Hematuria, No Retention, No Other Musculoskeletal: No: other, neck pain, shoulder pain, arm pain, back pain, hand pain, leg pain, foot pain Skin: No: Rash, Lesions, Jaundice, Bruising, Other Neurological: No: Weakness, Numbness, Incoordination, Change in speech, Confusion, Seizures, Other Allergies: Coded Allergies: NO KNOWN ALLERGIES (Unverified , 10/19/23) Exam Vital Signs Vital Signs Date Time Temp Pulse Resp B/P (MAP) Pulse Ox O2 Delivery O2 Flow Rate FiO2 05/01/25 03:10 81 123/53 05/01/25 01:40 97.5 20 100 97.5 General Appearance: Alert, Oriented X3, Cooperative, No acute distress HEENT: Atraumatic, PERRLA, EOMI, Mucous membr. moist/pink Respiratory: Clear to auscultation, Normal air movement Cardiovascular: Normal S1, Normal S2, No murmurs, Other (Irregular rate, AFib with RVR.) Abdominal: Normal bowel sounds, Soft, No tenderness, No hepatospenomegaly, No masses Extremities: No clubbing, No cyanosis, No edema, Normal pulses, No tenderness/swelling Skin: No rashes, No breakdown, No significant lesion Neuro: Normal gait, Normal speech, Strength at 5/5 X4 ext, Normal tone, Sensation intact, Cranial nerves 3-12 NL, Reflexes 2+ Psych/Mental Status: Mental status NL, Mood NL Labs/Xrays Labs Test 05/01/25 02:55 05/01/25 01:53 Range/Units Troponin I High Sensitivity 5 </=54 ng/L White Blood Count 10.0 # 4.4-10.8 10^3/uL Red Blood Count 5.09 4.5-5.90 10^6/uL Hemoglobin 16.0 13.5-17.5 g/dL Hematocrit 46.1 41.0-53.0 % Mean Corpuscular Volume 90.5 80.0-100.0 fL Mean Corpuscular Hemoglobin 31.4 28.0-32.0 pg Mean Corpuscular Hemoglobin Concent 34.7 32.0-36.0 g/dL Red Cell Distribution Width 13.7 11.8-14.3 % Platelet Count 223 140-450 10^3/uL Mean Platelet Volume 8.3 6.9-10.8 fL Neutrophils (%) (Auto) 76.8 37.0-80.0 % Lymphocytes (%) (Auto) 16.2 10.0-50.0 % Monocytes (%) (Auto) 5.2 0.0-12.0 % Eosinophils (%) (Auto) 1.5 0.0-7.0 % Basophils (%) (Auto) 0.3 0.0-2.0 % Neutrophils # (Auto) 7.7 1.6-8.6 10 ^3/uL Lymphocytes # (Auto) 1.6 0.4-5.4 10 ^3/uL Monocytes # (Auto) 0.5 0-1.3 10 ^3/uL Eosinophils # (Auto) 0.1 0-0.8 10 ^3/uL Basophils # (Auto) 0 0-0.2 10 ^3/uL Nucleated Red Blood Cells 0.0 % Prothrombin Time 10.9 9.3-11.8 sec Prothrombin Time INR 1.03 0.9-1.15 Activated Partial Thromboplast Time 32.6 24.5-34.5 SEC Sodium Level 139 136-145 mmol/L Potassium Level 3.9 3.5-5.1 mmol/L Chloride Level 104 98-107 mmol/L Carbon Dioxide Level 25 20-31 mmol/L Anion Gap 10 5-15 Blood Urea Nitrogen 14 9-23 mg/dL Creatinine 1.11 0.700-1.30 mg/dL Glomerular Filtration Rate Calc 87 >90 mL/min BUN/Creatinine Ratio 12.6 10.0-20.0 Serum Glucose 100 74-106 mg/dL Calcium Level 9.3 8.7-10.4 mg/dL Total Bilirubin 0.7 0.2-1.0 mg/dL Aspartate Amino Transferase (AST) 17 13-40 U/L Alanine Aminotransferase (ALT) < 9 7-40 U/L Alkaline Phosphatase 101 46-116 U/L Total Protein 7.1 5.7-8.2 g/dL Albumin 4.8 3.2-4.8 g/dL Free Thyroxine (T4) Calculated 1.11 0.89-1.76 ng/dL PATIENT: CASSIA MAYFIELD RACCT: [id number] UNIT: [id number] : 1985 LOC: ER ROOM / BED: / AGE / SEX: 39 / M ADM STATUS: REG ER SERVICE [id number] ORDERING PHYSICIAN: JALIL LOWRY MD PROCEDURE(s): CXRP - CHEST PORTABLE REASON: chest pain ORDER NUMBER(s): [id number], ACCESSION NUMBER(s): [id number] CHEST RADIOGRAPH Indication: chest pain Technique: Single frontal view of the chest was obtained COMPARISON: XY CHEST PORTABLE on DOS: 04/28/25, XY CHEST PORTABLE on DOS: 10/19/23 FINDINGS: Lines and Tubes: None Lungs: Clear Pleura: No effusion. No pneumothorax. Cardiomediastinal contours: Unremarkable Bones: Unremarkable IMPRESSION: 1. No acute disease. SEPSIS Sepsis Screen Date sepsis recognized/suspect: May 01, 2025 Time Sepsis recognized/suspect: 015 Recent Procedure: No On Antibiotic Therapy: No Respiratory Rate >20: No Heart Rate >90: Yes Temp<36 C (96.8 F) or >38.3 C: No SBP <90 or MAP <65 mmHG: No New Acute Mental Status Change: No Is the patient on CPAP, BIPAP,: No Physician Orders Electrocardigram (05/01/25 01:47) Troponin-I Hs (05/01/25 04:47) Thyroid Stimulating Hormone (05/01/25 01:51) Chest Portable (05/01/25 03:08) Vital Signs Date Time Temp Pulse Resp B/P (MAP) Pulse Ox O2 Delivery O2 Flow Rate FiO2 05/01/25 03:10 81 123/53 05/01/25 02:45 144 05/01/25 01:44 149 05/01/25 01:40 97.5 148 20 134/77 100 97.5 Laboratory Tests Test 05/01/25 01:53 White Blood Count 10.0 10^3/uL (4.4-10.8) # Medications Medications Dose Ordered Sig/Miguel A Route Start Time Stop Time Status Last Admin Dose Admin Metoprolol Tartrate 5 mg Q5M IV 05/01/25 02:00 05/01/25 02:11 DC 05/01/25 03:10 5 MG Assessment/Plan Assessment/Plan Atrial fibrillation with RVR Morbid obesity Paroxysmal atrial fibrillation Plan 1. Admit to telemetry unit 2. Breathing treatment 3. Pain control management 4. Management of fluids and electrolytes 5. Consultation for Cardiology 6. Diagnostic tests chest x-ray 7. DVT prophylaxis-on aspirin 8. Repeat labs CBC, CMP in a.m. 9. Continue with current medical management 10. Treatment plan discussed with patient and RN. Patient verbalized understanding. Plan discussed with: Patient, Other (RN) Problem List: (1) Atrial fibrillation with RVR (2) Morbid obesity (3) Paroxysmal atrial fibrillation Date of Service: May 01, 2025 Billing Provider: NISH ARREGUIN DNP Common Visit Codes: 59090-COWAVMS INP/OBS CARE (HIGH) NISH ARREGUIN DNP May 01, 2025 03:32
--- NOTE | 2025-05-01 03:35 | DVH ---
CHEST RADIOGRAPH Indication: chest pain Technique: Single frontal view of the chest was obtained COMPARISON: XY CHEST PORTABLE on DOS: 04/28/25, XY CHEST PORTABLE on DOS: 10/19/23 FINDINGS: Lines and Tubes: None Lungs: Clear Pleura: No effusion. No pneumothorax. Cardiomediastinal contours: Unremarkable Bones: Unremarkable IMPRESSION: 1. No acute disease.
--- NOTE | 2025-05-01 03:43 | ECG ---
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
[2025-05-01] MEDS: SODIUM CHLORIDE 0.9% 1,000 ML IV SCH (04:26)
[2025-05-01] MEDS: METOPROLOL TARTRATE 25 MG TAB PO SCH (06:18)
--- NOTE | 2025-05-01 06:27 | ECG ---
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
[2025-05-01 08:21] LABS: Alanine Aminotransferase 12 U/L (7-40); Alkaline Phosphatase 99 U/L (46-116); Anion Gap 14 (5-15); BUN/Creatinine Ratio 16.9 (10.0-20.0); Blood Urea Nitrogen 15 mg/dL (9-23); Calcium 9.8 mg/dL (8.7-10.4); Carbon Dioxide 21 mmol/L (20-31); Chloride 106 mmol/L (98-107); Glucose 87 mg/dL (74-106); Magnesium 1.8 mg/dL (1.6-2.6); Potassium 4.5 mmol/L (3.5-5.1); Sodium 141 mmol/L (136-145); Total Protein 6.8 g/dL (5.7-8.2)
[2025-05-01 08:22] LABS: Albumin 4.8 g/dL (3.2-4.8); Bilirubin, Total 0.7 mg/dL (0.2-1.0)
[2025-05-01 08:40] LABS: Hematocrit 46.8 % (41.0-53.0); Hemoglobin 16.4 g/dL (13.5-17.5); Mean Corpuscular Hemoglobin 31.9 pg (28.0-32.0); Mean Corpuscular Volume 91.1 fL (80.0-100.0); Nucleated Red Blood Cells % 0.2 %
--- NOTE | 2025-05-01 09:12 | DVHINCON2 ---
Date Seen: May 01, 2025 Referring Physician ALEXANDRA Woo Reason for Consultation Palpitations History of Present Illness This is a 39-year-old male patient who presents to emergency room with chief complaint of palpitations and shortness of breath. The patient was discharged from this facility on 04/30/2025. He reports that he went home and at approximately 11:00 p.m. at night, began experiencing palpitations. He reports waiting approximately 1 hour before deciding to come to the emergency room for further evaluation. Initial twelve lead electrocardiogram reveals atrial fibrillation with rapid ventricular response. The patient was given metoprolol 5 mg IV push. The patient was noted to have bradycardia events on the internal audit director. After reviewing internal audit director overnight, the patient noted to have multiple tachy-jared events. The patient remains in atrial fibrillation at time of assessment. Significant past medical history includes paroxysmal atrial fibrillation, gastric bypass, insomnia, and history of alcohol abuse. 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 He also reports that he stopped taking amiodarone many years ago due to adverse effects to his thyroid. Past Medical History Past medical history reviewed. No other significant than mentioned above. Past Surgical History Gastric bypass in 2016 Family History: Cardiovascular disease G8 MOTHER G8 FATHER Diabetes mellitus G8 MOTHER G8 FATHER Family History Family history reviewed. Social History Patient admits to occasional marijuana use Denies any tobacco use Reports a previous history of alcohol abuse for eight years, quit 3 years ago Allergies: Coded Allergies: NO KNOWN ALLERGIES (Unverified , 10/19/23) Home Meds Active Scripts Apixaban Base (ELIQUIS) 5 Mg Tab, 5 MG PO BID for 30 Days, #60 TAB Prov:ADALI ELKINS MD 04/30/25 Reported Medications Metoprolol Succinate (Metoprolol Succinate Er) 25 Mg Tab, 2 TAB PO BID 04/28/25 Trazodone Hcl (Trazodone Hcl) 50 Mg Tab, 1 TAB PO HS 04/28/25 Discontinued Scripts Flecainide Acetate (TAMBOCOR TABLET) 50 Mg Tb, 50 MG PO Q12HR for 30 Days, #60 TAB Prov:VICKEY CUNNINGHAM MD 10/20/23 Home Meds Home medications reviewed. Current Medications Current Medications Medications (Trade) Dose Ordered Sig/Miguel A Route PRN Reason Start Time Stop Time Status Last Admin Metoprolol Tartrate (Lopressor) 5 mg Q5M IV 05/01/25 02:00 05/01/25 02:11 DC 05/01/25 03:10 Aspirin 81 mg DAILY PO 05/01/25 10:00 Metoprolol Tartrate (Lopressor Tablet) 25 mg BID PO 05/01/25 10:00 Apixaban (Eliquis) 5 mg BID PO 05/01/25 10:00 05/01/25 08:05 DC Sodium Chloride 1,000 ml @ 60 mls/hr [id number] IV 05/01/25 03:30 05/01/25 04:26 Acetaminophen/ Hydrocodone Bitart ([place] 5/325MG Tab) 1 tab Q4HP PRN PO MODERATE PAIN (4-6 PAIN SCALE) 05/01/25 03:30 Ondansetron HCl (Zofran) 4 mg Q4HP PRN IV NAUSEA / VOMITING 05/01/25 03:30 Docusate Sodium (Colace Capsule) 100 mg BIDPRN PRN PO FOR CONSTIPATION 05/01/25 03:30 Acetaminophen (Tylenol Tablet) 650 mg Q6HP PRN PO PAIN SCALE 1-3 OR TEMP>100.4 05/01/25 03:30 Nitroglycerin (Ntrostat Sublingual) 0.4 mg Q5MINP PRN SL FOR CHEST PAIN 05/01/25 03:30 Morphine Sulfate 2 mg Q30M PRN IV FOR CHEST PAIN 05/01/25 03:30 Review of Systems Constitutional: No symptom reported Ears, Nose, & Throat: No symptom reported Eyes: No symptom reported Neurological: No symptoms reported Pulmonary/Respiratory: Shortness of breath Cardiovascular: Palpitations Gastrointestinal: No symptom reported Genitourinary: No symptom reported Musculoskeletal: No symptom reported Skin: No symptom reported Psychiatric: No symptom reported Endocrine: No symptom reported Hematologic/Lymphatic: No symptom reported Vital Signs Vital Signs Date Time Temp Pulse Resp B/P (MAP) Pulse Ox O2 Delivery O2 Flow Rate FiO2 05/01/25 08:20 98.5 86 16 119/75 (90) 96 98.5 05/01/25 08:20 Room Air* 0 21 Physical Exam General Appearance: Cooperative. Morbidly obese Pulmonary/Respiratory: Clear, bilateral breaths sounds. Cardiovascular/Chest: Irregularly irregular rate and rhythm Peripheral Pulses: 2+ Radial (R). 2+ Radial (L). 2+ Pedal (R). 2+ Pedal (L) Abdominal Exam: Normal bowel sounds. Ankle Exam: Negative ankle edema Lower extremities: Negative lower extremity edema Neuro/Mental Status: A/OX4, coherent. Thoughts/Psych: Normal thought pattern. Appropriate mood and affect. Good judgment and insight. Appearance: No acute distress. Skin Exam: Normal inspection. Normal color. Warm and dry. Labs/Diagnostic Data Labs Test 05/01/25 08:25 05/01/25 05:04 05/01/25 01:53 Range/Units White Blood Count 7.2 # 4.4-10.8 10^3/uL Red Blood Count 5.14 4.5-5.90 10^6/uL Hemoglobin 16.4 13.5-17.5 g/dL Hematocrit 46.8 41.0-53.0 % Mean Corpuscular Volume 91.1 80.0-100.0 fL Mean Corpuscular Hemoglobin 31.9 28.0-32.0 pg Mean Corpuscular Hemoglobin Concent 35.0 32.0-36.0 g/dL Red Cell Distribution Width 13.9 11.8-14.3 % Platelet Count 212 140-450 10^3/uL Mean Platelet Volume 8.6 6.9-10.8 fL Neutrophils (%) (Auto) 69.7 37.0-80.0 % Lymphocytes (%) (Auto) 22.5 10.0-50.0 % Monocytes (%) (Auto) 5.5 0.0-12.0 % Eosinophils (%) (Auto) 1.5 0.0-7.0 % Basophils (%) (Auto) 0.8 0.0-2.0 % Neutrophils # (Auto) 5.0 1.6-8.6 10 ^3/uL Lymphocytes # (Auto) 1.6 0.4-5.4 10 ^3/uL Monocytes # (Auto) 0.4 0-1.3 10 ^3/uL Eosinophils # (Auto) 0.1 0-0.8 10 ^3/uL Basophils # (Auto) 0.1 0-0.2 10 ^3/uL Nucleated Red Blood Cells 0.2 % Sodium Level 141 136-145 mmol/L Potassium Level 4.5 3.5-5.1 mmol/L Chloride Level 106 98-107 mmol/L Carbon Dioxide Level 21 20-31 mmol/L Anion Gap 14 5-15 Blood Urea Nitrogen 15 9-23 mg/dL Creatinine 0.89 0.700-1.30 mg/dL Glomerular Filtration Rate Calc 112 >90 mL/min BUN/Creatinine Ratio 16.9 10.0-20.0 Serum Glucose 87 74-106 mg/dL Calcium Level 9.8 8.7-10.4 mg/dL Magnesium Level 1.8 1.6-2.6 mg/dL Total Bilirubin 0.7 0.2-1.0 mg/dL Aspartate Amino Transferase (AST) 21 13-40 U/L Alanine Aminotransferase (ALT) 12 7-40 U/L Alkaline Phosphatase 99 46-116 U/L Troponin I High Sensitivity 9 </=54 ng/L Total Protein 6.8 5.7-8.2 g/dL Albumin 4.8 3.2-4.8 g/dL Prothrombin Time 10.9 9.3-11.8 sec Prothrombin Time INR 1.03 0.9-1.15 Activated Partial Thromboplast Time 32.6 24.5-34.5 SEC Thyroid Stimulating Hormone (TSH) 3.86 0.55-4.78 uIU/mL Free Thyroxine (T4) Calculated 1.11 0.89-1.76 ng/dL Assessment Tachycardia bradycardia syndrome Paroxysmal atrial fibrillation, Stage 3A Mitral valve regurgitation Marijuana use Obesity Plan/Recommendation We will continue with the following plan/recommendations (Dr. Becerra): Case discussed with . A transthoracic echocardiogram from 04/28/2025 reveals an EF of 50% with left atrial enlargement. Given that the patient has tachy-jared syndrome, the patient may benefit from permanent pacemaker implantation. Procedure discussed with the patient in full detail including ri sks and benefits. The patient understands and verbalized consent to proceed with procedure. We will schedule the patient at soonest availability on 05/01/2025. In the meantime, hold all anticoagulation and inotropic drugs prior to procedure. Thank you for allowing us to care for this patient. Please call with any questions or concerns. Critical care time spent: 44 minutes This medical document was created using an electronic medical record system with voice recognition software and computerized dictation system. Although this document has been carefully reviewed, there might still be some phonetic and typographical errors. Occasional wrong-word or ``sound-alike substitutions may have occurred due to the inherent limitations of voice recognition software. These areas are purely typographical due to imperfections of the software programs and do not reflect any compromise in the patient's medical care. Please read the chart carefully and recognize, using context, where these substitutions have occurred. Plan discussed with: Patient NYHA Physical activity limitations: NA Date of Service: May 01, 2025 Billing Provider: GUILLERMO LAMB Cardiology Common Codes: 36313-[id number] INP/OBS CARE (High) Cardiology Consultation Codes: [id number] CONSULT <45MIN GUILLERMO LAMB May 01, 2025 09:12
[2025-05-01] MEDS ORDERED: APIXABAN 5 MG TAB PO SCH (10:00)
[2025-05-01] MEDS: VANCOMYCIN HCL 1000 MG VL ONE (13:48)
[2025-05-01] MEDS: fentaNYL CITRATE 100 MCG/2 ML VL ONE (13:48)
[2025-05-01] MEDS: MIDAZOLAM HCL 2MG/2ML 2ml VIAL (1mg/ml) ONE (13:48)
[2025-05-01] MEDS: LIDOCAINE 2%HCL (LOCAL ANESTH.) INJ 20ML MDV ONE (13:49)
[2025-05-01] MEDS: VANCOMYCIN 1GM/200ML PM 200 ML IV ONE (13:49)
[2025-05-01] MEDS: IODIXANOL 320MG/ML 100ML BTL IV ONE (13:49)
[2025-05-01] MEDS: HYDROmorphone HCL 2 MG/ML VL/or syr ONE (15:45)
--- NOTE | 2025-05-01 16:00 | DVHOP2 ---
Operative Report - 2 Report Details Date: 05/01/25 Preop Diagnosis: Sick sinus syndrome. Tachy-jared syndrome. Postop Diagnosis: Successful placement of dual-chamber pacemaker. Surgeon: Ruma Becerra MD Anesthesiologist: Conscious sedation Anesthesia: Mac, Local Implant: Dual-chamber pacemaker. Consent: The patient was informed of the risks and benefits of the procedure. These include but are not limited to complications of anesthesia, postoperative infection, incomplete relief of symptoms, recurrence of symptoms, damage to blood vessels, nerves and tendons, deep venous thrombosis, pulmonary embolism and possible need for repeat surgery in the future. Complications: No complications Estimated Blood Loss: 5 cc Findings: Sick sinus syndrome Indications for Surgery: Tachy-jared events Name of Procedure Performed Dual-chamber pacemaker implantation Procedure Details Procedure Details: Prior local anesthesia with 2% lidocaine to the left pectoral area and full informed consent obtained patient was prepped and draped in usual fashion followed by an incisional left pectoral area and dissection planes with the electrocautery and blunt dissection. There was a pre-existing venogram performed minutes earlier. We followed the roadmap and obtained access into the subclavian vein after making an incision over the left pectoral area and dissecting into the fascia. We formed a pocket under the pectoral fashion filled it with a Ray-Liborio soaked sponge. We placed AJ curved guidewire into the subclavian vein and placed peel-away sheaths through which we placed active fixation electrodes into the RV apex and right atrial appendage successfully. These were tied with 0 Ethibond. The pocket was then flushed with antibiotic solution and the generator was placed in the pocket. Peel-away sheaths were removed. The generator was connected to the leads and placed into the pocket. The pocket was closed with 3-0 Vicryl. Monocryl was used to close the skin. Patient tolerated the procedure well there were no complications. Impression successful placement of dual-chamber pacemaker for tachy-jared events. Recommendations: Atrial six year was ordered for evaluation of placement as well as an EKG. Condition Good Disposition Still a Patient Date of Service: May 01, 2025 Billing Provider: RUMA BECERRA Sr., MD Cardiology Common Codes: 10368-[id number] INP/OBS CARE (High) Card. Pacer Implants/Gen [id number] DUAL LEAD PACER RUMA BECERRA Sr., MD May 01, 2025 16:00
--- NOTE | 2025-05-01 16:20 | DVH ---
CHEST RADIOGRAPH Indication: S/P PACEMAKER Technique: Single frontal view of the chest was obtained Comparison: XY CHEST PORTABLE on DOS: 05/01/25, XY CHEST PORTABLE on DOS: 04/28/25, XY CHEST PORTABLE on DOS: 10/19/23 FINDINGS: Lines and Tubes: None. Left-sided approach dual lead pacemaker terminating in the right atrium and r ight ventricle. Lungs: No focal consolidation. Pleura: No effusion. No pneumothorax. Cardiomediastinal contours: Borderline Cardiomegaly Bones: No acute osseous abnormality. IMPRESSION: No acute cardiopulmonary disease.
--- NOTE | 2025-05-01 16:59 | DVHPNRES ---
Progress Note Date Seen: May 01, 2025 Resident Creating Document: LAURI VILLEGAS RESIDENT Medical Necessity Reason Pt with a Central, PICC or Fol: No Subjective Review of Systems 39-year-old male patient who presents to emergency room with chief complaint of palpitations and shortness of breath. The patient was discharged from this facility on 04/30/2025. He reports that he went home and at approximately 11:00 p.m. at night, began experiencing palpitations. He reports waiting approximately 1 hour before deciding to come to the emergency room for further evaluation. Initial twelve lead electrocardiogram reveals atrial fibrillation with rapid ventricular response. The patient was given metoprolol 5 mg IV push. The patient was noted to have bradycardia events on the chair and couch maker. After reviewing chair and couch maker overnight, the patient noted to have multiple tachy- jared events. The patient remains in atrial fibrillation at time of assessment. Significant past medical history includes paroxysmal atrial fibrillation, gastric bypass, insomnia, and history of alcohol abuse. Patient reports that he does not follow a veneer gluer outpatient due to his lack of insurance. He also reports that he stopped taking amiodarone many years ago due to adverse effects to his thyroid. Past Medical History: AFib, hypertension Past Surgical History: Gastric bypass in 2016, gallbladder removed Social History: Patient admits to occasional marijuana use, Denies any tobacco use, Reports a previous history of alcohol abuse for eight years, quit 3 and half years ago used to drink 1 bottle of vodka per night allergies: None ROS: Patient says that he is not having any fibrillation at the moment but had it yesterday. H patient status post pacemaker today. No active complaints. the patient wound on his abdomen and Wound Care was called For cleaning. Objective vital signs Vital Sign Date Time Temp Pulse Resp B/P (MAP) Pulse Ox O2 Delivery O2 Flow Rate FiO2 05/01/25 16:25 58 18 156/90 (112) 92 05/01/25 08:20 98.5 98.5 05/01/25 08:20 Room Air* 0 21 Total Intake and Output 04/30/25 04/30/25 05/01/25 15:00 23:00 07:00 Intake Total 60 ml Balance 60 ml medications Current Medications Medications Dose Ordered Sig/Miguel A Route Start Time Stop Time Status Last Admin Dose Admin Metoprolol Tartrate 25 mg BID PO 05/01/25 10:00 Sodium Chloride 1,000 ml @ 60 mls/hr [id number] IV 05/01/25 03:30 05/01/25 04:26 60 MLS/HR Acetaminophen/ Hydrocodone Bitart 1 tab Q4HP PRN PO 05/01/25 03:30 Ondansetron HCl 4 mg Q4HP PRN IV 05/01/25 03:30 Docusate Sodium 100 mg BIDPRN PRN PO 05/01/25 03:30 Acetaminophen 650 mg Q6HP PRN PO 05/01/25 03:30 Nitroglycerin 0.4 mg Q5MINP PRN SL 05/01/25 03:30 Morphine Sulfate 2 mg Q30M PRN IV 05/01/25 03:30 Amiodarone HCl 200 mg BID PO 05/01/25 22:00 Cephalexin 500 mg Q6HR PO 05/01/25 18:00 05/04/25 18:00 Examination General Appearance: Cooperative. Morbidly obese Pulmonary/Respiratory: Clear, bilateral breaths sounds. Cardiovascular/Chest: Irregularly irregular rate and rhythm Peripheral Pulses: 2+ Radial (R). 2+ Radial (L). 2+ Pedal (R). 2+ Pedal (L) Abdominal Exam: Normal bowel sounds. Ankle Exam: Negative ankle edema Lower extremities: Negative lower extremity edema Neuro/Mental Status: A/OX4, coherent. Thoughts/Psych: Normal thought pattern. Appropriate mood and affect. Good judgment and insight. Appearance: No acute distress. Skin Exam: Presence of small wound on the right lower quadrant, taped with no soakage laboratory and microbiology Laboratory Tests 05/01/25 08:25 05/01/25 05:04 Test 05/01/25 05:04 Range/Units Serum Glucose 87 74-106 mg/dL Labs and/or images reviewed: Labs reviewed by me, Image(s) reviewed by me Problem List/Assessment/Plan Problem List/Assessment/Plan #Tachycardia bradycardia syndrome, s/p pacemaker placement #Paroxysmal atrial fibrillation, Stage 3A #Mitral valve regurgitation #HfpEf 50 % -cardio consult: Given that the patient has tachy-jared syndrome, the patient may benefit from permanent pacemaker implantation. -Successful placement of dual-chamber pacemaker for tachy-jared events today 05/01/2025. #hx of Marijuana use - patient counseled regarding cessation, side effects #Obesity- BMI 45.3 Patient counseled regarding need for exercise, lifestyle modifications, dietary control Plan discussed with: Patient, Other (rn) My Orders My Orders Orders - LAURI VILLEGAS Procedure Category Date Status Time Drug Screen LAB 05/01/25 Logged 10:35 * Wound Consult CONS 05/01/25 Transmitted Date of Service: May 01, 2025 Billing Provider: ALIS VICTOR MD Common Visit Codes: [id number] INP/OBS CARE(HIGH) LAURI IVLLEGAS May 01, 2025 16:59 ALIS VICTOR MD May 04, 2025 00:48
[2025-05-01] MEDS: CEPHALEXIN 250 MG CAP PO SCH (18:56)
[2025-05-01] MEDS: AMIODARONE HCL 200 MG TAB PO SCH (23:23)
[2025-05-01] MEDS: ACETAMINOPHEN 325 MG TAB PO PRN (23:23)
[2025-05-01] MEDS: MELATONIN 5 MG TAB PO ONE (23:23)
[2025-05-02] VITALS (7 sets, daily range): BP systolic 129–141; BP diastolic 80–92; PULSE 54–69; RESP 18–20; TEMP 97.4–98.4; O2SAT 96–98
[2025-05-02 04:06] LABS: Cannabinoid Screen, Urine Pos (NEGATIVE); Opiate Scree,Urine Neg (NEGATIVE)
[2025-05-02 04:09] LABS: Amphetamine Screen, Urine Neg (NEGATIVE); Barbiturate Scree,Urine Neg (NEGATIVE); Benzodiazephine Screen, Urine Pos (NEGATIVE); Cocaine Screen, Urine Neg (NEGATIVE); Phencyclidine Screen, Urine Neg (NEGATIVE)
[2025-05-02 06:16] LABS: Hematocrit 45.5 % (41.0-53.0); Hemoglobin 15.9 g/dL (13.5-17.5); Mean Corpuscular Hemoglobin 31.8 pg (28.0-32.0); Mean Corpuscular Volume 90.8 fL (80.0-100.0); Nucleated Red Blood Cells % 0.1 %
[2025-05-02 06:21] LABS: Alanine Aminotransferase 10 U/L (7-40); Albumin 4.5 g/dL (3.2-4.8); Alkaline Phosphatase 96 U/L (46-116); Anion Gap 11 (5-15); BUN/Creatinine Ratio 13.8 (10.0-20.0); Blood Urea Nitrogen 12 mg/dL (9-23); Calcium 8.9 mg/dL (8.7-10.4); Carbon Dioxide 23 mmol/L (20-31); Chloride 106 mmol/L (98-107); Glucose 88 mg/dL (74-106); Potassium 3.9 mmol/L (3.5-5.1); Sodium 140 mmol/L (136-145); Total Protein 6.8 g/dL (5.7-8.2)
[2025-05-02 06:22] LABS: Bilirubin, Total 1.1 mg/dL (0.2-1.0)
--- NOTE | 2025-05-02 08:28 | DVH ---
CHEST RADIOGRAPH Indication: CXR FOR PACEMAKER/ICD LEAD PLACEMENT Technique: Single frontal view of the chest was obtained COMPARISON: XY CHEST PORTABLE on DOS: 05/01/25, XY CHEST PORTABLE on DOS: 05/01/25, XY CHEST PORTABLE on DOS: 04/28/25, XY CHEST PORTABLE on DOS: 10/19/23 FINDINGS: Lines and Tubes: Left chest AICD Lungs: Congestion Pleura: No effusion. No pneumothorax. Cardiomediastinal contours: Unremarkable Bones: Unremarkable IMPRESSION: Mild congestion
--- NOTE | 2025-05-02 15:32 | DVHPN2 ---
Subjective Continues to complain of surgical wound pain at the site of pacemaker placement Reviewed: Care Plan, H&P, Labs, Medications, Previous Orders, Radiology, Other (Consultation) Changes from previous H/P or p: No Changes Objective Vitals Vital Signs Date Time Temp Pulse Resp B/P (MAP) Pulse Ox O2 Delivery O2 Flow Rate FiO2 05/02/25 13:00 98.4 59 18 141/90 (107) 98 98.4 05/02/25 08:00 Room Air* 0 21 Intake/Output Intake and Output 05/02/25 07:00 Intake Total 1083 ml Balance 1083 ml Intake Oral 843 ml IV Total 240 ml # Voids 3 General Appearance: Alert, Oriented X3, Cooperative, No acute distress HEENT: Atraumatic Lungs: Clear to auscultation, Normal air movement Chest/Breasts: Other (Pacemaker in place with clean dressing with mild tenderness but no signs of bleeding/infection) Cardiovascular: Regular rate, Normal S1, Normal S2, No murmurs Extremities: No edema, Other (Left upper extremity sling to decreased the motion due to pacemaker insertion in the left upper chest) Neuro: Normal speech, Cranial nerves 3-12 NL Skin: Other (Dressed abdominal wall lesion; pacemaker insertion sites description as above) Psych/Mental Status: Mental status NL, Mood NL Medications Current Medications Medications Dose Ordered Sig/Miguel A Route Start Time Stop Time Status Last Admin Dose Admin Metoprolol Tartrate 25 mg BID PO 05/01/25 10:00 05/02/25 10:33 25 MG Sodium Chloride 1,000 ml @ 60 mls/hr [id number] IV 05/01/25 03:30 05/02/25 12:50 60 MLS/HR Acetaminophen/ Hydrocodone Bitart 1 tab Q4HP PRN PO 05/01/25 03:30 Ondansetron HCl 4 mg Q4HP PRN IV 05/01/25 03:30 Docusate Sodium 100 mg BIDPRN PRN PO 05/01/25 03:30 Acetaminophen 650 mg Q6HP PRN PO 05/01/25 03:30 05/02/25 14:35 650 MG Nitroglycerin 0.4 mg Q5MINP PRN SL 05/01/25 03:30 Morphine Sulfate 2 mg Q30M PRN IV 05/01/25 03:30 Amiodarone HCl 200 mg BID PO 05/01/25 22:00 05/02/25 10:33 200 MG Cephalexin 500 mg Q6HR PO 05/01/25 18:00 05/04/25 18:00 05/02/25 10:33 500 MG Laboratory Results Laboratory Tests 05/02/25 04:56 Chemistry Test 05/02/25 04:56 Albumin 4.5 g/dL (3.2-4.8) Calcium Level 8.9 mg/dL (8.7-10.4) Total Protein 6.8 g/dL (5.7-8.2) LFT Test 05/02/25 04:56 Alanine Aminotransferase (ALT) 10 U/L (7-40) Alkaline Phosphatase 96 U/L (46-116) Aspartate Amino Transferase (AST) 17 U/L (13-40) Total Bilirubin 1.1 mg/dL (0.2-1.0) H Microbiology Microbiology Date/Time Source Procedure Growth Status 05/01/25 23:00 Nose MRSA Screen - Final Complete Labs and/or images reviewed: Labs reviewed by me, Image(s) reviewed by me Assessment/Plan Assessment/Plan Covering: Tachycardia bradycardia syndrome s/p pacemaker placement on May 01, 2025 Paroxysmal atrial fibrillation Mitral valve regurgitation Hypertensive heart disease with HfpEf Secondary hypercoagulable status Abdominal fold ulcer; healing Marijuana use disorder Morbid obesity Cleared by cardiology for discharge To resume therapeutic apixaban 5 mg twice a day upon discharge from Prescribed amiodarone upon discharge To continue home beta-blockers Advised to [id number] pain killers for surgical wound pain To continue self wound care at home for abdominal fold ulcer To follow up with Dr. Melendez next Sunday in discharge clinic To follow up with Cardiology within 1 to 2 weeks Counseled on the importance of adopting healthy lifestyle with diet and exercise in order to lose weight Prescribed cephalexin for infection prevention for pacemaker insertion surgical wounds Counseled on marijuana use cessation for 16 minutes Goals of care discussed with the patient for 20 minutes; full code Late Entry. This medical document was created using an electronic medical record system with computerized dictation system. Although this document has been carefully reviewed, there might still be some phonetic and typographical errors. These areas are purely typographical due to imperfections of the software programs, and do not reflect any compromise in the patient's medical care. Plan discussed with: Patient, Other (Father; nurse) My Orders Orders - ALHURANI,NEVIN E MD Procedure Category Date Status Time Communication Order ORDERS 05/02/25 Transmitted 13:31 Date of Service: May 02, 2025 Billing Provider: NEVIN MELENDEZ MD Common Visit Codes: [id number] INP/OBS CARE(HIGH) Secondary Visit Codes: [id number] CHNG SMOKING >10MIN (Counseled on marijuana use cessation for 16 minutes), [id number]-[id number] CARE PLAN 30 MINUTES (20 minutes) NEVIN MELENDEZ MD May 02, 2025 15:32
--- NOTE | 2025-05-02 17:12 | DVHPN2 ---
Subjective No cardiac events reported Remained sinus rhythm Changes from previous H/P or p: No Changes Objective Vitals Vital Signs Date Time Temp Pulse Resp B/P (MAP) Pulse Ox O2 Delivery O2 Flow Rate FiO2 05/02/25 13:00 98.4 59 18 141/90 (107) 98 98.4 05/02/25 08:00 Room Air* 0 21 Intake/Output Intake and Output 05/02/25 07:00 Intake Total 1083 ml Balance 1083 ml Intake Oral 843 ml IV Total 240 ml # Voids 3 Chest/Breasts: Other (Pacemaker in place with clean dressing with mild tenderness but no signs of bleeding/infection) Skin: Other (Dressed abdominal wall lesion) Medications Current Medications Medications Dose Ordered Sig/Miguel A Route Start Time Stop Time Status Last Admin Dose Admin Metoprolol Tartrate 25 mg BID PO 05/01/25 10:00 05/02/25 10:33 25 MG Sodium Chloride 1,000 ml @ 60 mls/hr [id number] IV 05/01/25 03:30 05/02/25 12:50 60 MLS/HR Acetaminophen/ Hydrocodone Bitart 1 tab Q4HP PRN PO 05/01/25 03:30 Ondansetron HCl 4 mg Q4HP PRN IV 05/01/25 03:30 Docusate Sodium 100 mg BIDPRN PRN PO 05/01/25 03:30 Acetaminophen 650 mg Q6HP PRN PO 05/01/25 03:30 05/02/25 14:35 650 MG Nitroglycerin 0.4 mg Q5MINP PRN SL 05/01/25 03:30 Morphine Sulfate 2 mg Q30M PRN IV 05/01/25 03:30 Amiodarone HCl 200 mg BID PO 05/01/25 22:00 05/02/25 10:33 200 MG Cephalexin 500 mg Q6HR PO 05/01/25 18:00 05/04/25 18:00 05/02/25 10:33 500 MG Trazodone HCl 50 mg HS PO 05/02/25 22:00 Laboratory Results Laboratory Tests 05/02/25 04:56 Chemistry Test 05/02/25 04:56 Albumin 4.5 g/dL (3.2-4.8) Calcium Level 8.9 mg/dL (8.7-10.4) Total Protein 6.8 g/dL (5.7-8.2) LFT Test 05/02/25 04:56 Alanine Aminotransferase (ALT) 10 U/L (7-40) Alkaline Phosphatase 96 U/L (46-116) Aspartate Amino Transferase (AST) 17 U/L (13-40) Total Bilirubin 1.1 mg/dL (0.2-1.0) H Microbiology Microbiology Date/Time Source Procedure Growth Status 05/01/25 23:00 Nose MRSA Screen - Final Complete Assessment/Plan Assessment/Plan Tachycardia bradycardia syndrome Paroxysmal atrial fibrillation, Stage 3A Mitral valve regurgitation Marijuana use Obesity Plan/Recommendation (Dr. Nikia Young) s/p Dual chamber PPM (Biotronic) 39-year-old male admitted with tachy-jared syndrome and paroxysmal AFib. During this admission, the patient underwent successful placement of a dual-chamber permanent pacemaker. Post procedure pacemaker interrogation shows appropriate function, and chest x-ray reveals mild pulmonary congestion without acute complications. The patient has converted to normal sinus rhythm. He will continue on amiodarone 200 mg twice daily and Eliquis for stroke prevention, and metoprolol succinate for rate control. He is hemodynamically stable and cleared for discharge from cardiac standpoint. The patient is advised to follow-up with his car unloader helper in the outpatient setting for device checks, rhythm management, and ongoing optimization of therapy. Plan discussed with: Patient Date of Service: May 02, 2025 Billing Provider: JULIANNA YOUNG MD Common Visit Codes: CONSULT ONLY Consultation Codes: [id number] CONSULT <45MIN LADAN YANEZP May 02, 2025 17:12
[2025-05-02] MEDS ORDERED: AMIO200T13 PO ×2 (17:24)
[2025-05-02] MEDS ORDERED: CEPH250C PO ×2 (17:24)
--- NOTE | 2025-05-02 17:28 | DVHDS2 ---
Discharge Summary Date of Admission May 01, 2025 at 03:26 Date of Discharge: May 02, 2025 Admitting Diagnosis Palpitations Wounds: Abdominal fold ulcer; present on admission//pacemaker insertion site surgical wound Labs/Diagnostic Data: Laboratory Results Test 05/02/25 04:56 05/02/25 01:30 05/01/25 05:04 05/01/25 01:53 White Blood Count 6.9 10^3/uL (4.4-10.8) Red Blood Count 5.01 10^6/uL (4.5-5.90) Hemoglobin 15.9 g/dL (13.5-17.5) Hematocrit 45.5 % (41.0-53.0) Mean Corpuscular Volume 90.8 fL (80.0-100.0) Mean Corpuscular Hemoglobin 31.8 pg (28.0-32.0) Mean Corpuscular Hemoglobin Concent 35.0 g/dL (32.0-36.0) Red Cell Distribution Width 13.8 % (11.8-14.3) Platelet Count 196 10^3/uL (140-450) Mean Platelet Volume 8.3 fL (6.9-10.8) Neutrophils (%) (Auto) 61.9 % (37.0-80.0) Lymphocytes (%) (Auto) 28.3 % (10.0-50.0) Monocytes (%) (Auto) 6.7 % (0.0-12.0) Eosinophils (%) (Auto) 2.6 % (0.0-7.0) Basophils (%) (Auto) 0.5 % (0.0-2.0) Neutrophils # (Auto) 4.3 10 ^3/uL (1.6-8.6) Lymphocytes # (Auto) 2.0 10 ^3/uL (0.4-5.4) Monocytes # (Auto) 0.5 10 ^3/uL (0-1.3) Eosinophils # (Auto) 0.2 10 ^3/uL (0-0.8) Basophils # (Auto) 0 10 ^3/uL (0-0.2) Nucleated Red Blood Cells 0.1 % Sodium Level 140 mmol/L (136-145) Potassium Level 3.9 mmol/L (3.5-5.1) Chloride Level 106 mmol/L (98-107) Carbon Dioxide Level 23 mmol/L (20-31) Anion Gap 11 (5-15) Blood Urea Nitrogen 12 mg/dL (9-23) Creatinine 0.87 mg/dL (0.700-1.30) Glomerular Filtration Rate Calc 113 mL/min (>90) BUN/Creatinine Ratio 13.8 (10.0-20.0) Serum Glucose 88 mg/dL (74-106) Calcium Level 8.9 mg/dL (8.7-10.4) Total Bilirubin 1.1 mg/dL (0.2-1.0) Aspartate Amino Transferase (AST) 17 U/L (13-40) Alanine Aminotransferase (ALT) 10 U/L (7-40) Alkaline Phosphatase 96 U/L (46-116) Total Protein 6.8 g/dL (5.7-8.2) Albumin 4.5 g/dL (3.2-4.8) Urine Opiates Screen Neg (NEGATIVE) Urine Fentanyl Screen Pos (NEGATIVE) Urine Barbiturates Screen Neg (NEGATIVE) Urine Phencyclidine Screen Neg (NEGATIVE) Urine Amphetamines Screen Neg (NEGATIVE) Urine Benzodiazepines Screen Pos (NEGATIVE) Urine Cocaine Screen Neg (NEGATIVE) Urine Cannabinoids Screen Pos (NEGATIVE) Magnesium Level 1.8 mg/dL (1.6-2.6) Troponin I High Sensitivity 9 ng/L (</=54) Prothrombin Time 10.9 sec (9.3-11.8) Prothrombin Time INR 1.03 (0.9-1.15) Activated Partial Thromboplast Time 32.6 SEC (24.5-34.5) Thyroid Stimulating Hormone (TSH) 3.86 uIU/mL (0.55-4.78) Free Thyroxine (T4) Calculated 1.11 ng/dL (0.89-1.76) Other Laboratory Tests 05/02/25 04:56 Brief Hx & Hospital Course: Covering: Tachycardia bradycardia syndrome s/p pacemaker placement on May 01, 2025 Paroxysmal atrial fibrillation Mitral valve regurgitation Hypertensive heart disease with HFpEF Secondary hypercoagulable status Abdominal fold ulcer; healing Marijuana use disorder Morbid obesity Cleared by cardiology for discharge To resume therapeutic apixaban 5 mg twice a day upon discharge from Prescribed amiodarone upon discharge home To continue home beta-blockers Advised to [id number] pain killers for surgical wound pain To continue self wound care at home for abdominal fold ulcer To follow up with Dr. Melendez next Sunday in discharge clinic To follow up with Cardiology within 1 to 2 weeks Counseled on the importance of adopting healthy lifestyle with diet and exercise in order to lose weight Prescribed cephalexin for infection prevention for pacemaker insertion surgical wounds Counseled on marijuana use cessation Late Entry. This medical document was created using an electronic medical record system with computerized dictation system. Although this document has been carefully reviewed, there might still be some phonetic and typographical errors. These areas are purely typographical due to imperfections of the software programs, and do not reflect any compromise in the patient's medical care. Consults/Reason for consult Cardiology consulted for palpitations Operations or Procedures Pacemaker insertion on May 01, 2025 Condition at Discharge: Stable Final Diagnosis/Problems List #Tachycardia bradycardia syndrome, s/p pacemaker placement May 01, 2025 Rest of diagnoses as above Discharge Disposition: Home Discharge Instruct/Medications Diet: Regular Activity: No Restrictions, As Tolerated Follow Up/Referral: With Dr. Melendez/Dr. Valenzuela on Sunday05/04/2025 at 10:15 am at [facility] 102//Dr. Becerra next week Medications: To continue home medications; amiodarone Scheduled Amiodarone HCl (Amiodarone HCl), 200 MG PO BID Apixaban Base (Eliquis), 5 MG PO BID Cephalexin (Keflex Capsule), 500 MG PO Q6HR Metoprolol Succinate (Metoprolol Succinate Er), 2 TAB PO BID, (Reported) Trazodone Hcl (Trazodone Hcl), 1 TAB PO HS, (Reported) Discontinued Medications Flecainide Acetate (Tambocor Tablet), 50 MG PO Q12HR Discharge Statement: "Patient was advised to return to the ER or call 911 if any headaches, dizziness, shortness of breath, chest pain, abdominal pain, bleeding, fevers, or worsening of medical condition. Patient was counseled about treatment plan, medications, possible side effects, patientverbalized understanding. All questions were answered to the best of my ability. 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
--- NOTE | 2025-05-02 23:30 | DVHPN2 ---
Consult Progress Note Date Seen: May 02, 2025 Subjective Other Systems: Patient was seen and evaluated in follow up. No overnight cardiac events. Patient is in NSR. CBC and CMP are unremarkable. Telemetry reviewed. Objective vital signs Vital Sign Date Time Temp Pulse Resp B/P (MAP) Pulse Ox O2 Delivery O2 Flow Rate FiO2 05/02/25 20:00 Room Air* 0 21 05/02/25 19:35 98.4 63 19 96 05/02/25 17:00 140/90 (107) Total Intake and Output 05/01/25 05/01/25 05/02/25 15:00 23:00 07:00 Intake Total 240 ml 843 ml Balance 240 ml 843 ml Examination: GENERAL:Normal, HEENT:Normal, NECK:Normal, LUNGS:Normal, CVS:Normal, ABDOMEN:Normal, MSK:Normal, SKIN:Normal (Pacemaker in place with clean dressing with mild tenderness but no signs of bleeding/infection, dressed abdominal wall lesion)) laboratory and microbiology Laboratory Tests 05/02/25 04:56 Test 05/02/25 04:56 Range/Units Serum Glucose 88 74-106 mg/dL Problem List/Assessment/Plan Problem List/Assessment/Plan Assessment/Plan Tachycardia bradycardia syndrome. Paroxysmal atrial fibrillation, Stage 3A. Mitral valve regurgitation . Marijuana use . Obesity. Plan/Recommendation Continued all current supportive medical care. Patient has been seen by Roopa Gan NP on my behalf, her and I discussed the plan with the patient. 39-year-old male admitted with tachy-jared syndrome and paroxysmal AFib. During this admission, the patient underwent successful placement of a dual- chamber permanent pacemaker. Post procedure pacemaker interrogation shows appropriate function, and chest x- ray reveals mild pulmonary congestion without acute complications. The patient has converted to normal sinus rhythm. He will continue on amiodarone 200 mg twice daily and Eliquis for stroke prevention, and metoprolol succinate for rate control. He is hemodynamically stable and cleared for discharge from cardiac standpoint. The patient is advised to follow-up with his skiver welt end in the outpatient setting for device checks, rhythm management, and ongoing optimization of therapy. Additional plan as per the hospital course. Plan discussed with: Patient Date of Service: May 02, 2025 Billing Provider: JULIANNA YOUNG MD Cardiology Common Codes: [id number] INP/OBS CARE (High) Cardiology Consultation Codes: [id number] CONSULT <45MIN JULIANNA YOUNG MD May 02, 2025 22:43
--- NOTE | 2025-05-04 07:56 | ECG ---
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
--- NOTE | 2025-05-04 07:57 | ECG ---
[facility] Test Date: 2025-04-28 Test Time: 14:06:28 Pat Name: CASSIA MAYFIELD Department: ED Room: 0295T B Gender: M Edge Bander Hand: iveth : 1985 Requested By: NICKOLAS BECERRA Order Number: [id number] Reading MD: Nickolas Becerra Measurements Intervals [place] Rate: 137 P: 0 MO: 156 QRS: -20 QRSD: 93 T: 26 QT: 327 QTc: 494 Interpretive Statements Sinus tachycardia with irregular rate Borderline left axis deviation Low voltage, precordial leads Electronically Signed On 05-04-2025 21:53:13 PDT by Nickolas Becerra Please click the below link to view image of tracing.
--- NOTE | 2025-05-04 07:57 | ECG ---
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
--- NOTE | 2025-05-06 10:52 | ECG ---
[facility] Test Date: 2025-05-01 Test Time: 01:44:19 Pat Name: CASSIA MAYFIELD Department: ER Room: 0295T B Gender: M [employer]: KRISTIN : 1985 Requested By: RUMA WHITE Order Number: [id number] Reading MD: Measurements Intervals [place] Rate: 148 P: 0 SC: 0 QRS: -6 QRSD: 97 T: 9 QT: 315 QTc: 495 Interpretive Statements Atrial fibrillation Inferior infarct, old Please click the below link to view image of tracing.
== END 2025-05-02 20:56 | disposition home or self-care (01) | DRG 243 ==
LOC: ER 01:38 → OVERFLOW 03:26 → TELE-WESTW 17:25
PROVIDERS: ADMIT Student in an Organized Health Care Education/Training Program; ATTEND Student in an Organized Health Care Education/Training Program
PROC: 0JH606Z Insertion of Pacemaker, Dual Chamber into Chest Subcutaneous Tissue and Fascia, Open Approach (ICD-10-PCS; principal; 2025-05-01)
PROC: 02H63JZ Insertion of Pacemaker Lead into Right Atrium, Percutaneous Approach (ICD-10-PCS; 2025-05-01)
PROC: 02HK3JZ Insertion of Pacemaker Lead into Right Ventricle, Percutaneous Approach (ICD-10-PCS; 2025-05-01)
DX: I49.5 Sick sinus syndrome (principal); D68.69 Other thrombophilia; I20.0 Unstable angina; I50.30 Unspecified diastolic (congestive) heart failure; Z68.42 Body mass index [BMI] 45.0-49.9, adult; F10.10 Alcohol abuse, uncomplicated; F12.10 Cannabis abuse, uncomplicated; I48.0 Paroxysmal atrial fibrillation; I11.0 Hypertensive heart disease with heart failure; I34.0 Nonrheumatic mitral (valve) insufficiency; E66.01 Morbid (severe) obesity due to excess calories; Z59.71 Insufficient health insurance coverage; Z79.01 Long term (current) use of anticoagulants; Z79.899 Other long term (current) drug therapy; Z82.49 Family history of ischemic heart disease and other diseases of the circulatory system; Z83.3 Family history of diabetes mellitus; Z98.84 Bariatric surgery status; Y90.9 Presence of alcohol in blood, level not specified
CPT/HCPCS: 33208; 36415; 71045; 80053; 80307; 83735; 84439; 84443; 84484; 85025; 85610; 85730; 87081; 93005; 99152; 99291; G0378; J2250; Q9967

== ENCOUNTER 2025-09-01 07:47 | Outpatient (CLI) | payer OTHER ==
[~2025-09-01 07:47] MED LIST changes: +AMIO200T13 PO; +CEPH250C PO; -FLE50T PO
[2025-09-01 08:22] LABS: Urine Protein, UAD Negative (Negative)
[2025-09-01 08:23] LABS: Hematocrit 48.1 % (41.0-53.0); Hemoglobin 16.1 g/dL (13.5-17.5); Mean Corpuscular Hemoglobin 31.0 pg (28.0-32.0); Mean Corpuscular Volume 92.5 fL (80.0-100.0); Nucleated Red Blood Cells % 0.1 %
[2025-09-01 09:33] LABS: Alanine Aminotransferase 15 U/L (7-40); Albumin 4.4 g/dL (3.2-4.8); Alkaline Phosphatase 85 U/L (46-116); Anion Gap 10 (5-15); BUN/Creatinine Ratio 11.2 (10.0-20.0); Bilirubin, Total 1.1 mg/dL (0.2-1.0); Blood Urea Nitrogen 12 mg/dL (9-23); Calcium 9.6 mg/dL (8.7-10.4); Carbon Dioxide 28 mmol/L (20-31); Chloride 103 mmol/L (98-107); Cholesterol 135 mg/dL (< 200); Glucose 87 mg/dL (74-106); HDL Cholesterol 41 mg/dL (40-59); Potassium 4.6 mmol/L (3.5-5.1); Sodium 141 mmol/L (136-145); Total Protein 7.4 g/dL (5.7-8.2); Triglycerides 106 mg/dL (< 150)
== END 2025-09-01 17:00 | disposition home or self-care (01) ==
LOC: LAB 07:47
PROVIDERS: ATTEND Internal Medicine
DX: I10 Essential (primary) hypertension (principal); Z00.01 Encounter for general adult medical examination with abnormal findings; Z79.899 Other long term (current) drug therapy
CPT/HCPCS: 36415; 80053; 80061; 81001; 83036; 84439; 84443; 85025